=== PATIENT | male | born 2000 | race Caucasian/White ===

== ENCOUNTER → 2020-08-22 | Outpatient (CLI) | payer BC ==
[~2020-08-22] VITALS: Ht 190.5 cm; Wt 61.7 kg
[~2020-08-22] MED LIST: ALPR0.254 PO; SINCALIDE 1.2 MCG in IV NORMAL SALINE 50ML 30 ML IV ONE
--- NOTE | 2020-08-22 08:27 | RAD ---
EXAM: Abdomen sonogram. HISTORY: Nausea and vomiting. TECHNIQUE: Sonographic imaging of the abdomen was performed. COMPARISON: None. FINDINGS: The liver is normal in size. No focal hepatic lesion is seen. The common bile duct is josh l in caliber. There is a 2 mm nonmobile nodule along the gallbladder wall likely due to a polyp. Ther e is no cholelithiasis. There is no cholecystitis. The right kidney, pancreas and aorta cava are unre markable. IMPRESSION: 1. Suspected 2 mm gallbladder polyp. 2. No acute sonographic finding. Electronically signed by: Angeline Hernández MD (08/22/2020 8:25 AM) [id number]
--- NOTE | 2020-08-22 11:01 | RAD ---
EXAM: HEPATOBILIARY SCINTIGRAPHY WITH GALLBLADDER EJECTION FRACTION CALCULATION. HISTORY: Abdominal pain, nausea. TECHNIQUE: 5.5 mCi technetium-99m Choletec were administered intravenously and scintigraphic images o f the abdomen obtained. After filling of the gallbladder, 1.2 mcg of sincalide were infused and the g allbladder ejection fraction calculated. FINDINGS: There is prompt hepatic clearance of tracer from the blood pool. There is homogeneous distr ibution throughout the liver. There is normal filling of the gallbladder and clearance into the bilia ry tree and small bowel. The gallbladder ejection fraction is 35% (normal >35%). IMPRESSION: 1. Borderline decreased gallbladder ejection fraction. Electronically signed by: Juan Isaacs MD (08/22/2020 10:59 AM) [id number]
== END ==
LOC: US 08:21
PROVIDERS: ATTEND Internal Medicine Gastroenterology
DX: K21.9 Gastro-esophageal reflux disease without esophagitis (principal)
CPT/HCPCS: 76705; 78227; A9537; J2805

== ENCOUNTER → 2020-12-11 | Outpatient (CLI) | payer BC ==
[~2020-12-11] MED LIST changes: +ESOM40CA PO; +OXYC-325 PO; -SINCALIDE 1.2 MCG in IV NORMAL SALINE 50ML 30 ML IV ONE
== END ==
LOC: LAB 13:50
PROVIDERS: ATTEND Surgery
DX: Z01.812 Encounter for preprocedural laboratory examination (principal); K82.8 Other specified diseases of gallbladder; Z20.822 Contact with and (suspected) exposure to COVID-19
CPT/HCPCS: U0003; U0005

== ENCOUNTER 2020-12-13 05:59 | Day surgery (SDC) | payer BC ==
[2020-12-11 14:02] VITALS: BP 111/72
[~2020-12-13] VITALS: Ht 190.5 cm; Wt 61.2 kg
[~2020-12-13 05:59] MED LIST changes: -ESOM40CA PO; -OXYC-325 PO; +ceFAZolin SODIUM IV Push 1 GM VIAL. IVP PRN
[2020-12-13] MEDS ORDERED: fentaNYL PF VIAL 100 MCG/2 ML VIAL IVP PRN (06:00)
[2020-12-13] MEDS ORDERED: MORPHINE SULFATE 2 MG/ML INJ. IVP PRN (06:00)
[2020-12-13] MEDS ORDERED: PROCHLORPERAZINE 10 MG/2 ML VIAL. IVP PRN (06:00)
[2020-12-13] MEDS ORDERED: HYDROmorphone 2 MG/ML VIAL IVP PRN (06:00)
[2020-12-13] MEDS ORDERED: PROPOFOL 10 MG/ML (20ML) VIAL. IV ONE ×2 (06:20→08:40)
[2020-12-13] MEDS ORDERED: LIDOCAINE 2% PF 5 ML VIAL. ONE (06:20)
[2020-12-13] MEDS ORDERED: DEXAMETHASONE SOD PHOS 4 MG/ML VIAL ONE ×2 (06:21→07:58)
[2020-12-13] MEDS ORDERED: ONDANSETRON PF 4 MG/2 ML VIAL. ONE (06:21)
[2020-12-13] MEDS ORDERED: ROCURONIUM 50 MG/5 ML VIAL. ONE (06:21)
[2020-12-13] MEDS ORDERED: fentaNYL PF VIAL 100 MCG/2 ML VIAL ONE ×2 (06:21→09:05)
[2020-12-13] MEDS: IV RINGERS,LACTATED 1000ML 1,000 ML IV SCH ×2 (06:35→09:16)
[2020-12-13] MEDS ORDERED: ACETAMINOPHEN 500 MG TABLET PO ONE (07:00)
[2020-12-13] MEDS ORDERED: BUPIVACAINE-EPI 0.25%-1:200000 MPF 30 ML VIAL. ONE (07:10)
[2020-12-13] MEDS ORDERED: ONDANSETRON PF 4 MG/2 ML VIAL. IM ONE (07:15)
[2020-12-13] MEDS ORDERED: ONDANSETRON PF 4 MG/2 ML VIAL. IVP ONE (07:15)
[2020-12-13] MEDS ORDERED: MIDAZOLAM HCL/PF 2 MG/2 ML VIAL. ONE (07:19)
[2020-12-13] MEDS ORDERED: SUCCINYLCHOLINE 200 MG/10 ML VIAL. ONE (07:39)
--- NOTE | 2020-12-13 07:52 | PDOC1 ---
History and Physical Date of Admission Date of Admission DATE: 12/13/20 TIME: 07:48 Identification/Chief Complaint Chief Complaint Abdominal pain Source Source: Chart review, Patient History of Present Illness History of Present Illness 20-year-old male with 3-year history of abdominal pain he has had EGDs as well as ultrasound which showed a 2 mm gallbladder polyp with no stones HIDA scan showed ejection fraction of 35% with recurrence of his symptoms with injection of Kinevac Past Medical History Cardiovascular: No pertinent hx Pulmonary: No pertinent hx GI: GERD, Peptic Ulcer disease Heme/Onc: No pertinent hx Hepatobiliary: No pertinent hx Psych: No pertinent hx Rheumatologic: No pertinent hx Infectious disease: No pertinent hx ENT: No pertinent hx Renal/: No pertinent hx Endocrine: No pertinent hx Dermatology: No pertinent hx Past Surgical History Past Surgical History: No pertinent history Family History Family History: No Significant Social History Smoke: No ALCOHOL: rare Drugs: None Current Medications Current Medications Current Medications Fentanyl Citrate (Fentanyl 2ml Vial) 25 mcg PRN Q5MIN PRN IVP MILD PAIN 1-3; Start 12/13/20 at 06:00; Stop 12/13/20 at 20:00 Fentanyl Citrate (Fentanyl 2ml Vial) 50 mcg PRN Q5MIN PRN IVP MODERATE PAIN 4- 6; Start 12/13/20 at 06:00; Stop 12/13/20 at 20:00 Morphine Sulfate (Morphine Sulfate) 1 mg PRN Q10MIN PRN IVP SEVERE PAIN 7-10; Start 12/13/20 at 06:00; Stop 12/13/20 at 20:00 Ringer's Solution 1,000 ml @ 30 mls/hr Q24H IV Last administered on 12/13/20at 06:35; Start 12/13/20 at 06:00; Stop 12/13/20 at 17:59 Hydromorphone HCl (Dilaudid) 0.5 mg PRN Q10MIN PRN IVP SEVERE PAIN 7-10, 2nd CHOICE; Start 12/13/20 at 06:00; Stop 12/13/20 at 20:00 Prochlorperazine Edisylate (Compazine) 5 mg PACU PRN PRN IVP NAUSEA, MRX1; Start 12/13/20 at 06:00; Stop 12/13/20 at 20:00 Cefazolin Sodium (Ancef) 1 gm 1X PREOP PRN IVP PRIOR TO PROCEDURE; Start 12/12/20 at 18:30 Acetaminophen (Tylenol) 1,000 mg 1X ONCE PO Last administered on 12/13/20at 06:35; Start 12/13/20 at 07:00; Stop 12/13/20 at 07:01; Status DC Propofol (Diprivan) 200 mg STK-MED ONCE IV ; Start 12/13/20 at 06:20; Stop 12/13/20 at 06:20; Status DC Lidocaine HCl (Lidocaine Pf 2% Vial) 5 ml STK-MED ONCE .ROUTE ; Start 12/13/20 at 06:20; Stop 12/13/20 at 06:21; Status DC Dexamethasone Sodium Phosphate (Decadron) 4 mg STK-MED ONCE .ROUTE ; Start 12/13/20 at 06:21; Stop 12/13/20 at 06:21; Status DC Ondansetron HCl (Zofran) 4 mg STK-MED ONCE .ROUTE ; Start 12/13/20 at 06:21; Stop 12/13/20 at 06:21; Status DC Rocuronium [place] (Zemuron) 50 mg STK-MED ONCE .ROUTE ; Start 12/13/20 at 06:21; Stop 12/13/20 at 06:22; Status DC Fentanyl Citrate (Fentanyl 2ml Vial) 100 mcg STK-MED ONCE .ROUTE ; Start 12/13/20 at 06:21; Stop 12/13/20 at 06:22; Status DC Bupivacaine HCl/ Epinephrine Bitart (Sensorcaine-Epi 0.25%-1:019448 Mpf) 30 ml STK-MED ONCE .ROUTE ; Start 12/13/20 at 07:10; Stop 12/13/20 at 07:10; Status DC Ondansetron HCl (Zofran) 4 mg 1X ONCE IM ; Start 12/13/20 at 07:15; Stop 12/13/20 at 07:16; Status UNV Ondansetron HCl (Zofran) 4 mg 1X ONCE IVP Last administered on 12/13/20at 07:18; Start 12/13/20 at 07:15; Stop 12/13/20 at 07:32; Status DC Midazolam HCl (Versed) 2 mg STK-MED ONCE .ROUTE ; Start 8/13/21 at 07:19; Stop 12/13/20 at 07:20; Status DC Succinylcholine Chloride (Anectine) 200 mg STK-MED ONCE .ROUTE ; Start 12/13/20 at 07:39; Stop 12/13/20 at 07:39; Status DC Active Scripts Active Reported No Known Medications Prior To Admisstion (Info) Each 1 Each DAILY Allergies Allergies: Coded Allergies: No Known Drug Allergies (Unverified , 12/13/20) ROS Gastrointestinal: Yes Nausea, Yes Abdominal Pain Physical Exam General: Alert, Oriented X3, Cooperative, No acute distress HEENT: Atraumatic, EOMI Lungs: Clear to auscultation, Normal air movement Heart: RRR, no murmurs Abdomen: Normal bowel sounds, Soft, Other (Mildly tender to palpation epigastrium) Rectal Exam: not examined Extremities: No edema Skin: No significant lesion Neuro: Normal speech Psych/Mental Status: Mental status NL Vitals Vitals Vital Signs Date Time Temp Pulse Resp B/P (MAP) Pulse Ox O2 Delivery O2 Flow Rate FiO2 12/13/20 06:28 97.8 65 18 111/72 97 Room Air 97.8 VTE Prophylaxis Ordered VTE Prophylaxis Devices: Yes VTE Pharmacological Prophylaxi: Contraindicated Assessment/Plan Assessment/Plan Biliary dyskinesia with gallbladder polyp plan laparoscopic cholecystectomy Justifications for Admission Other Justification JOHANNY OBANDO MD Dec 13, 2020 07:51
[2020-12-13] MEDS ORDERED: diphenhydrAMINE 50 MG/ML VIAL ONE (08:19)
[2020-12-13] MEDS ORDERED: GLYCOPYRROLATE 1 MG/5 ML VIAL. ONE (08:21)
[2020-12-13] MEDS ORDERED: NEOSTIGMINE METHYLSULFATE 5 MG/5 ML SYRINGE. ONE (08:21)
[2020-12-13] MEDS ORDERED: KETOROLAC 30 MG/ML VIAL. ONE (08:22)
[2020-12-13] MEDS ORDERED: SEVOFLURANE 31 TO 60 MINUTES. IH ONE (08:28)
--- NOTE | 2020-12-13 08:32 | PDOC4 ---
Operative Note Operative Note Date: December 13, 2020 at 829 Preoperative diagnosis: Biliary dyskinesia and gallbladder polyp Postoperative diagnosis: Same Procedure: Laparoscopic cholecystectomy with fluorescein cholangiography Surgeon: Froy Specimen: Gallbladder Dictation: Patient is a 20-year-old male with right upper quadrant epigastric abdominal pain for approximately 3 years significant weight loss ultrasound showed gallbladder polyp and HIDA scan showed borderline ejection fraction with recurrent symptoms with Kinevac injection. Procedure of laparoscopic cholecystectomy was explained to the patient detail risk benefits were also discussed including bleeding infection injury to intra-abdominal contents possible necessitating further open operations alternatives to this procedure also discussed with the patient who seemed to understand and gave both verbal and written consent to have the procedure performed. Patient was taken to the operating room placed in the supine position general anesthesia was initiated once patient was sleeping intubated his abdomen was prepped and draped usual sterile fashion using ChloraPrep. Area just below the umbilicus was injected with quarter percent Marcaine with epinephrine incision was made 11 blade scalpel and a varies needle was placed within the abdomen creating pneumoperitoneum once this was complete the millimeter port was placed in a 5 mm camera was placed within the abdomen which was inspected no other abnormalities were noted. A 5 mm port was placed in the epigastrium a 5 mm port was placed in the right midabdomen and a 5 mm port was placed in the right lateral abdomen all under direct visualization. The dome of the gallbladder is grasped retracted cephalad the infundibulum of the gallbladder is grasped tract and laterally exposing the triangle fluorescein dye was visualized which showed patent cystic duct and common bile duct with normal anatomy. The adherent tissues the triangle were taken down with blunt dissection exposing the cystic duct and cystic artery both were doubly clipped and transected the gallbladder is taken off the liver with hook electrocautery placed in Endo Catch bag and removed the umbilicus right upper quadrant was irrigated and suctioned dry hemostasis deemed to be appropriate the pneumoperitoneum was reduced all ports were removed the fascial defect at the umbilicus was closed with a [id number] 0 Vicryl suture and the skin was reapproximated all port sites for subcuticular Monocryl Mastisol Steri-Strips and island dressings were applied. Patient was awakened and extubated in the operating room taken to recovery in stable condition all sponge instrument needle counts listed as correct estimated blood loss 5 mL JOHANNY OBANDO MD Dec 13, 2020 08:32
[2020-12-13] MEDS ORDERED: ESOM40CA PO (08:35)
[2020-12-13] MEDS ORDERED: OXYC-325 PO (08:35)
--- NOTE | 2020-12-13 08:36 | DISCH ---
DISCHARGE INSTRUCTIONS Condition on Discharge Condition on Discharge: Stable Activity After Discharge Activity Instructions for Disc: Avoid exertion Other activity instructions: No lifting more than 20 pounds for 2 weeks Diet after Discharge Diet after Discharge: Low Fat Wound Incision Care Other wound/incision instructi: May shower in 24 hours Contacting the after DC Call your doctor for: If your condition worsens Follow-Up Follow up with: Dr. Obando in 2 weeks JOHANNY OBANDO MD Dec 13, 2020 08:36
[2020-12-13] MEDS: fentaNYL PF VIAL 100 MCG/2 ML VIAL IVP PRN ×2 (09:09→09:16)
[2020-12-13 09:58] VITALS: BP 90/42
[2020-12-13] MEDS ORDERED: MORPHINE SULFATE 2 MG/ML INJ. ONE (10:04)
[2020-12-13] MEDS ORDERED: oxyCODONE/APAP 5/325 1 TAB TABLET ONE (10:04)
[2020-12-13] MEDS ORDERED: oxyCODONE/APAP 5/325 1 TAB TABLET PO ONE (10:30)
--- NOTE | 2020-12-17 15:08 | PATHOLOGY ---
[facility] Accession Number: [id number] . 01 Material submitted: . gallbladder - GALLBLADDER AND CONTENTS . 01 Clinical history: . BILIARY DYSKINESIA LAP JARRELL . 02 Diagnosis: Gallbladder, laparoscopic cholecystectomy: - Chronic cholecystitis, mild. - Small gallbladder neck lymph node showing no diagnostic abnormalities. (JPM:isamar; 12/17/2020) S 12/17/2020 0920 Local . 02 Comment: There are no calculi identified within the gallbladder lumen or specimen container. There is no evidence of malignancy. (JPM:isamar; 12/17/2020) . 02 Electronically signed: . Wilder Cordon MD, Pathologist NPI- [id number] . 01 Gross description: . Fixative: Formalin Labeled: Gallbladder and contents Specimen received: An intact gallbladder Dimensions: 5.7 x 3.2 x 2.8 cm Serosa: Solomon-drummond and smooth Lymph node: Not identified Mucosa: Solomon, bile-stained and velvety Average wall thickness: 0.1 cm Calculi: None identified Abnormalities: None identified A1- Industrial Relations Specialist body, fundus, and the cystic duct margin. (MRF; 12/13/2020) MFE/MFE 12/13/2020 1638 Local . 02 Pathologist provided ICD-10: K81.1 . 02 CPT . 543808 Specimen Comment: A courtesy copy of this report has been sent to [phone] Specimen Comment: Report sent to Performed at: 01 [facility] [address], [place] [id number] MD Rowdy Ruiz MD Phone: [phone] Performed at: 02 [facility] [address] [place], [place] [id number] MD Wilder Cordon MD Phone: [phone]
== END 2020-12-13 10:45 | disposition home or self-care (01) ==
LOC: SURG 05:59
PROVIDERS: ATTEND Surgery
DX: K82.4 Cholesterolosis of gallbladder (principal); K82.8 Other specified diseases of gallbladder; Z87.891 Personal history of nicotine dependence; Z79.899 Other long term (current) drug therapy; Z98.890 Other specified postprocedural states; Z72.89 Other problems related to lifestyle
CPT/HCPCS: 47563; 88304; A4364; A4930; A6219; J0330; J0690; J1100; J1200; J1885; J2250; J2270; J2405; J2704; J2710; J3010; J3490; A4657

== ENCOUNTER 2020-12-15 03:57 | Inpatient (IN) | payer BC ==
[~2020-12-15] VITALS: Ht 190.5 cm; Wt 61.3 kg
[~2020-12-15 03:57] MED LIST changes: +ESOM40CA PO; +OXYC-325 PO; -ceFAZolin SODIUM IV Push 1 GM VIAL. IVP PRN
[2020-12-15 04:59] LABS: BASO % 0 % (0-3); EOS % 1 % (0-3); HEMATOCRIT 34.3 % (39.0-53.0); HEMOGLOBIN 12.2 g/dL (13.0-17.5); LYMPH # 0.3 x10^3/uL (1.0-4.8); LYMPH % 4 % (24-48); MEAN CORPUSCULAR HEMOGLOBIN 31 pg (25-35); MEAN CORPUSCULAR HGB CONC 35 g/dL (31-37); MEAN CORPUSCULAR VOLUME 89 fL (79-100); MONO # 0.6 x10^3/uL (0.0-1.1); MONO % 8 % (0-9); NEUT # 6.6 x10^3/uL (1.8-7.7); NEUT % 87 % (31-73); PLATELET COUNT 217 x10^3/uL (140-400); RED BLOOD COUNT 3.87 x10^6/uL (4.30-5.70); RED CELL DISTRIBUTION WIDTH 12.6 % (11.5-14.5); WHITE BLOOD COUNT 7.6 x10^3/uL (4.0-11.0)
--- NOTE | 2020-12-15 05:05 | PHYS DOC ---
General Adult EDM: Chief Complaint: GI PROBLEM HPI: HPI: Patient is a 20 year old male presents for evaluation of abdominal pain. Patient had a laparoscopic cholecystectomy performed on Wednesday (Dr Mcduffie). Patient had an uncomplicated surgical procedure and was discharged later that day. Patient states since discharge she has had consistent abdominal pain that has progressively become worse. Patient's abdominal pain is diffuse. He also states she has associated right shoulder discomfort that has persisted after discharge. Patient was placed on pain medications which resulted in constipation. Patient states over the last few days he has been taking laxatives and just tonight prior to arrival patient had multiple bowel movements. Patient also states tonight started experience some nausea and vomiting. Patient describes his vomit as bile. (ROSA M AGUSTIN DO) Review of Systems: Review of Systems: Review of systems: Constitutional symptoms- No fever, no chills. Eyes- No Discharge, No Visual Loss Respiratory symptoms- No shortness of breath, No wheezing, No Dyspnea on Exertion Cardiovascular Systems; No chest pain, No Palpitations, No syncope Gastrointestinal symptoms: Positive abdominal pain, Positive nausea, Positive vomiting Positive constipation no diarrhea. Genitourinary symptoms: No dysuria. Musculoskeletal symptoms: No back pain No extremity pain. NEUROLOGICAL Symptoms: No headache, no generalized weakness; No focal Weakness Skin: No rash. (ROSA M AGUSTIN DO) Heart Score: C/O Chest Pain: N/A Risk Factors: Risk Factors: DM, Current or recent (<one month) smoker, HTN, HLP, family history of CAD, obesity. Risk Scores: Score 0 - 3: 2.5% MACE over next 6 weeks - Discharge Home Score 4 - 6: 20.3% MACE over next 6 weeks - Admit for Clinical Observation Score 7 - 10: 72.7% MACE over next 6 weeks - Early Invasive Strategies (ROSA M AGUSTIN DO) Current Medications: Current Medications Medications (Trade) Dose Ordered Sig/[place] Start Time Stop Time Status Last Admin Dose Admin Morphine Sulfate (Morphine Sulfate) 4 mg 1X ONCE 12/15/20 05:00 12/15/20 05:01 UNV Ondansetron HCl (Zofran) 4 mg 1X ONCE 12/15/20 05:00 12/15/20 05:01 UNV (ROSA M AGUSTIN DO) Allergies: Allergies: Allergies Coded Allergies Type Severity Reaction Last Updated Verified No Known Drug Allergies 12/13/20 No (ROSA M AGUSTIN DO) Physical Exam: PE: General: alert, no acute distress. Skin: warm, dry and intact, no erythema, no rash. HENT: bilateral external ears normal, oropharynx moist, nose normal. Head:: Normocephalic, atraumatic. Neck: Trachea midline. Eyes: EOMI, Normal conjunctiva, No drainage CARDIOVASCULAR: Regular rate and rhythm RESPIRATORY: No respiratory distress Back: Full range of motion. MUSCULOSKELETAL: Full range of motion of bilateral upper and lower extremities. GASTROINTESTINAL: Diffuse abdominal tenderness NEUROLOGICAL: Alert and noted to person, place and time. No neurological deficits observed Psychiatric: Cooperative. Normal judgment (ROSA M AGUSTIN DO) EKG: EKG: [] (ROSA M AGUSTIN DO) Radiology/Procedures: Radiology/Procedures: [] (ROSA M AGUSTIN DO) Course & Med Decision Making: Course & Med Decision Making Pertinent Labs and Imaging studies reviewed. (See chart for details) [] Patient was evaluated for chief complaint. Work-up consisted of laboratory analysis and radiologic imaging. Treatment included morphine and IV fluids Labs and radiologic imaging pending at shift change. (ROSA M AGUSTIN DO) Course & Med Decision Making I received this patient in signout from Dr. Agustin. CT resulted showing concerns for hemoperitoneum. There is retained pneumoperitoneum less likely normal postoperative change. Hemoglobin 12.2. No previous for comparison. His vital signs have stayed stable during his stay here. Discussed with Dr. Mcduffie, attending surgeon, who recommends admission with potential further work-up with HIDA scan serial H/H. Accepted by Dr. Fernandez, hospitalist. [id number] (ALEXYS TOURE MD) Dragon Disclaimer: Dragon Disclaimer: This electronic medical record was generated, in whole or in part, using a voice recognition dictation system. (ROSA M AGUSTIN DO) Departure Departure Impression: Primary Impression: Abdominal pain Referrals: ALPESH BUSTOS MD (PCP) ROSA M AGUSTIN DO Dec 15, 2020 05:05 ALEXYS TOURE MD Dec 15, 2020 07:00
[2020-12-15 05:28] LABS: CREATININE 1.1 mg/dL (0.7-1.3); GFR 85.3; POTASSIUM 3.3 mmol/L (3.5-5.1)
[2020-12-15] MEDS ORDERED: ONDANSETRON PF 4 MG/2 ML VIAL. IVP ONE (05:30)
[2020-12-15] MEDS ORDERED: MORPHINE SULFATE 4 MG/ML INJ. IVP ONE (05:30)
[2020-12-15 05:43] LABS: ALBUMIN 4.3 g/dL (3.4-5.0); ALBUMIN/GLOBULIN RATIO 1.5 (1.0-1.7); TOTAL BILIRUBIN 0.7 mg/dL (0.2-1.0); TOTAL PROTEIN 7.1 g/dL (6.4-8.2)
[2020-12-15] MEDS ORDERED: CONTRAST GIVEN. MC PRN (05:45)
[2020-12-15] MEDS ORDERED: IOHEXOL 300 MG/ML 100ML VIAL. IV ONE (06:00)
--- NOTE | 2020-12-15 06:43 | RAD ---
CT abdomen and pelvis with contrast PQRS statement: CT scans at this facility use dose reduction including either automated exposure cont rol, iterative reconstructions, and /or weight based radiation dosing via mA and kV modification when appropriate to reduce radiation dose to as low as reasonably achievable. Contrast: 75 mL Omnipaque 300 intravenous contrast HISTORY: Vomiting bile, fever, abdominal pain, nausea, weight loss. History of cholecystectomy one day ago. Abdomen findings: There is extensive pneumomediastinum surrounding the lower esophagus and soft tissu e emphysema about the diaphragms and abdominal wall and retroperitoneum, this all appears to be extra peritoneal rather than pneumoperitoneum although small volume of pneumoperitoneum be difficult to exc lude. Cholecystectomy. Pancreas, liver, spleen, adrenals and left kidney are unremarkable. The right kidney demonstrates a mildly delayed nephrogram, which could also be mildly striated, renal vessels a re unremarkable. No hydronephrosis evident. There may be a small volume of free fluid at [facility]'s po uch. The appendix is negative. There is fluid within the large bowel. No dilated small bowel loops. N o inflammatory changes of the bowel evident. Vessels demonstrate patent contrast enhancement of throm bosis or occlusion evident. No pneumatosis of the bowel evident. Pelvis findings: Bladder, prostate unremarkable. Fluid within the rectosigmoid without inflammatory c hange. There is mild/moderate dependent pelvic free fluid which has mild layering density dependently which could be hemorrhage. Bones are unremarkable. IMPRESSION: 1. Recent postoperative changes of laparoscopic cholecystectomy. There is mild hypodense fluid within the right paracolic gutter and pelvis without layering density within the pelvis, this could represe nt hemoperitoneum or a mixture of intraperitoneal bile bile leak and hemoperitoneum. No biliary ducta l dilation. 2. Extensive soft tissue emphysema at the lower chest, abdomen and pelvis as well as possible small v olume of pneumoperitoneum most likely representing residual air insufflated during laparoscopic surge ry. Given history of vomiting, the air surrounding the esophagus at the lower chest could also be obs erved with an esophageal tear however there is no edema or fluid surrounding the esophagus or pleural fluid to otherwise suggest esophageal injury, and is most likely related to the postoperative air el sewhere within the chest, abdomen and pelvis. 3. Unusual right renal nephrogram raising the possibility of pyelonephritis. No hydronephrosis. FOR INTERNAL CODING PURPOSES Critical result: Findings discussed with Dr. Agustin at 12/15/2020 6:32 AM. RESULT CODE: (C) Electronically signed by: Gabriel Dailey MD (12/15/2020 6:41 AM) [facility]
[2020-12-15 06:46] LABS: % BANDS 4 % (0-9); % BASOS 2 % (0-3); % EOS 4 % (0-5); % LYMPHS 9 % (24-48); % MONOS 2 % (0-10); % SEGS 79 % (35-66); PLT ESTIMATE ADEQUATE (ADEQUATE)
[2020-12-15] MEDS ORDERED: ONDANSETRON PF 4 MG/2 ML VIAL. IVP PRN (07:00)
[2020-12-15] MEDS: PANTOPRAZOLE IV PUSH 40 MG VIAL. IVP SCH (12:32)
[2020-12-15] MEDS: MORPHINE SULFATE 2 MG/ML INJ. IVP PRN ×3 (12:51→21:19)
[2020-12-15 13:30] VITALS: BP 106/61
--- NOTE | 2020-12-15 14:03 | HP ---
ADMIT DATE: 12/15/2020 CHIEF COMPLAINT: Abdominal pain, nausea, vomiting, recent cholecystectomy. HISTORY OF PRESENT ILLNESS: The patient is a pleasant 20-year-old healthy male who had a laparoscopic cholecystectomy on Wednesday of this week. He has been doing well at first, but then he has developed abdominal pain and nausea, vomiting. He has not had a bowel movement for several days. His mom brought him to the hospital. We did some imaging of his abdomen, which is showing postoperative changes of a laparoscopic cholecystectomy, but there is also some fluid collection in the right paracolic gutter and pelvis. We were concerned this could be a hemoperitoneum or a mixture of hemoperitoneum and bile leak. I discussed the case with the ER physician. We are going to admit the patient and consult GI and general surgery. It should also be noted that the CAT scan was also showing the possibility of pyelonephritis. PAST MEDICAL HISTORY: Recent cholecystectomy. ALLERGIES: None. FAMILY HISTORY: Diabetes. SOCIAL HISTORY: Does not drink, smoke or take drugs. MEDICATIONS: Reviewed, please refer to the MRAD. REVIEW OF SYSTEMS: GENERAL: No history of weight change, weakness or fevers. SKIN: No bruising, hair changes or rashes. EYES: No blurred, double or loss of vision. NOSE AND THROAT: No history of nosebleeds, hoarseness or sore throat. HEART: No history of palpitations, chest pain or shortness of breath on exertion. LUNGS: Denies cough, hemoptysis, wheezing or shortness of breath. GASTROINTESTINAL: He complains of nausea, vomiting, abdominal pain. GENITOURINARY: No history of frequency, urgency, hesitancy or nocturia. NEUROLOGIC: Denies history of numbness, tingling, tremor or weakness. PSYCHIATRIC: No history of panic, anxiety or depression. ENDOCRINE: No history of heat or cold intolerance, polyuria or polydipsia. EXTREMITIES: Denies muscle weakness, joint pain, pain on walking or stiffness. PHYSICAL EXAMINATION: VITALS: Within normal limits and are stable. GENERAL: No apparent distress. Alert and oriented. HEENT: Normal cephalic atraumatic, external auditory canals are patent EYES: Extraocular muscles are intact, pupils are equally round and reactive to light and accommodation MUSCULOSKELETAL: Well developed, well nourished, good range of motion ENDOCRINE: No thyromegaly was palpated LYMPHATICS: No cervical chain or axillary nodes were noted HEMATOPOIETIC: No bruising NECK: Supple, no JVD, no thyromegaly was noted. LUNGS: Clear to auscultation in all lung reyes without rhonchi or wheezing. HEART: RRR, S1, S2 present. Peripheral pulses intact, no obvious murmurs were noted. ABDOMEN: He has decreased bowel sounds and tenderness to palpation. EXTREMITIES: Without any cyanosis, clubbing, or edema. Pedal pulses intact, Homans sign is negative. NEUROLOGIC: He is extremely weak. PSYCHIATRIC: He appears depressed. SKIN: No ulcerations or rashes, good skin turgor, no jaundice. VASCULAR: Good capillary refill, neurovascular bundle appears to be intact. LABORATORY DATA: White count 7, hemoglobin 12, platelets 217. Electrolytes are normal other than potassium of 3.3. CT of the abdomen shows a hemoperitoneum and/or bile leak and incidental finding of possible pyelonephritis. ASSESSMENT AND PLAN: Postoperative changes of possible bile leak and/or hemoperitoneum and possible pyelonephritis with incidental finding of hypokalemia. The patient has been admitted. We will give him IV antibiotics, IV fluids, replace his potassium. consult his surgeon, consult GI. Trend labs. Home meds, deep venous thrombosis prophylaxis. Full code. ROBEL DR: BIJAL/basilia TID: [id number]
[2020-12-15 14:13] LABS: BASO % 0 % (0-3); EOS % 0 % (0-3); HEMATOCRIT 32.1 % (39.0-53.0); HEMOGLOBIN 11.2 g/dL (13.0-17.5); LYMPH # 0.6 x10^3/uL (1.0-4.8); LYMPH % 14 % (24-48); MEAN CORPUSCULAR HEMOGLOBIN 31 pg (25-35); MEAN CORPUSCULAR HGB CONC 35 g/dL (31-37); MEAN CORPUSCULAR VOLUME 89 fL (79-100); MONO # 0.5 x10^3/uL (0.0-1.1); MONO % 12 % (0-9); NEUT # 3.1 x10^3/uL (1.8-7.7); NEUT % 74 % (31-73); PLATELET COUNT 193 x10^3/uL (140-400); RED BLOOD COUNT 3.61 x10^6/uL (4.30-5.70); RED CELL DISTRIBUTION WIDTH 12.6 % (11.5-14.5); WHITE BLOOD COUNT 4.2 x10^3/uL (4.0-11.0)
[2020-12-15] MEDS: cefTRIAXone IV Push 1 GM VIAL. IVP SCH (15:11)
[2020-12-15] MEDS: AA 4.25 %/CALCIUM/LYTES/D5W 1,000 ML IV SCH (15:11)
[2020-12-15 16:48] VITALS: BP 115/62
[2020-12-15] MEDS: ACETAMINOPHEN 325 MG TABLET. PO PRN (17:01)
[2020-12-15 19:01] VITALS: BP 103/42
[2020-12-15 19:45] VITALS: BP 105/57
[2020-12-15 23:39] VITALS: BP 119/46
[2020-12-16] VITALS (7 sets, daily range): BP systolic 95–119; BP diastolic 49–71
[2020-12-16] MEDS: AA 4.25 %/CALCIUM/LYTES/D5W 1,000 ML IV SCH ×2 (02:15→14:50)
[2020-12-16] MEDS: PANTOPRAZOLE IV PUSH 40 MG VIAL. IVP SCH (08:59)
--- NOTE | 2020-12-16 09:35 | PDOC2 ---
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 Ongoing pain to RUQ, right shoulder. Catron it worsen ed over the weekend. Episode of bilious vomiting. chills. Had stools prior to er evaluation Past Medical History Cardiovascular: No pertinent hx Pulmonary: No pertinent hx GI: GERD, Peptic Ulcer disease Heme/Onc: No pertinent hx Hepatobiliary: No pertinent hx Psych: No pertinent hx Rheumatologic: No pertinent hx Infectious disease: No pertinent hx Renal/: No pertinent hx Endocrine: No pertinent hx Past Surgical History Past Surgical History: Cholecystectomy Family History Family History: No Significant Social History ALCOHOL: rare Drugs: None Lives: Alone Current Problem List Problem List Problems Medical Problems: (1) Abdominal pain Status: Acute Current Medications Current Medications Current Medications Ondansetron HCl (Zofran) 4 mg 1X ONCE IVP Last administered on 12/15/20at 05:37; Start 12/15/20 at 05:30; Stop 12/15/20 at 05:31; Status DC Morphine Sulfate (Morphine Sulfate) 4 mg 1X ONCE IVP Last administered on 12/15/20at 05:37; Start 12/15/20 at 05:30; Stop 12/15/20 at 05:31; Status DC Iohexol (Omnipaque 300 Mg/ml) 75 ml 1X ONCE IV Last administered on 12/15/20at 06:09; Start 12/15/20 at 06:00; Stop 12/15/20 at 06:01; Status DC Info (CONTRAST GIVEN -- Rx MONITORING) 1 each PRN DAILY PRN MC SEE COMMENTS; Start 12/15/20 at 05:45; Stop 12/17/20 at 05:44 Ondansetron HCl (Zofran) 4 mg PRN Q6HRS PRN IVP NAUSEA/VOMITING 1ST CHOICE; Start 12/15/20 at 07:00; Stop 12/16/20 at 06:59; Status DC Morphine Sulfate (Morphine Sulfate) 2 mg PRN Q4HRS PRN IVP SEVERE PAIN 7-10 Last administered on 12/15/20at 21:19; Start 12/15/20 at 07:00; Stop 12/16/20 at 06:59; Status DC Pantoprazole Sodium (PROTONIX VIAL for IV PUSH) 40 mg DAILYAC IVP Last administered on 12/16/20at 08:59; Start 12/15/20 at 10:00 Ceftriaxone Sodium (Rocephin) 1 gm Q24H IVP Last administered on 12/15/20at 15:11; Start 12/15/20 at 15:00 Amino Acids/ Electrolytes/ Dextrose 1,000 ml @ 80 mls/hr [id number] IV Last administered on 12/16/20at 02:15; Start 12/15/20 at 13:45 Acetaminophen (Tylenol) 650 mg PRN Q4HRS PRN PO MILD PAIN / TEMP > 100.3'F Last administered on 12/15/20at 17:01; Start 12/15/20 at 17:00 Active Scripts Active Nexium Capsule (Esomeprazole Magnesium) 40 Mg Capsule.dr 40 Mg PO DAILYAC 30 Days Percocet 5-325 mg Tablet (Oxycodone HCl/Acetaminophen) 1 Each Tablet 1 Tab PO Q6HRS PRN MDD 4 Tablet(s) 5 Days Reported No Known Medications Prior To Admisstion (Info) Each 1 Each MC DAILY Allergies Allergies: Coded Allergies: No Known Drug Allergies (Unverified , 12/13/20) ROS General: YES: Chills, Other (low grade fevers ) PSYCHOLOGICAL ROS: No: Anxiety, Depression Eyes: No Blurry vision, No Double vision HEENT: No: Heacaches, Sore Throat Hematological and Lymphatic: No: Bleeding Problems, Blood Clots Respiratory: YES: Shortness of breath (when taking IV pain medication ); No: Cough Cardiovascular: No Chest Pain, No Palpitations Gastrointestinal: Yes Other (see hpi) Genitourinary: No Dysuria, No Retention Musculoskeletal: No Joint Pain, No Muscle Pain Neurological: No Impaired Coord/balance, No Numbness/Tingling Skin: No Pruritus, No Rash Physical Exam General: Alert, Oriented X3, Cooperative HEENT: Atraumatic, PERRLA Lungs: Clear to auscultation, Normal air movement Heart: Regular rate, Normal S1, Normal S2 Abdomen: Soft, Other (lap sites intact, no signs of infection, TTP RUQ) Extremities: No clubbing, No cyanosis Skin: No rashes, No breakdown Neuro: Normal gait, Normal speech Psych/Mental Status: Mental status NL, Mood NL MUSCULOSKELETAL: No deformity, No swelling Vitals VITALS Vital Signs Date Time Temp Pulse Resp B/P (MAP) Pulse Ox O2 Delivery O2 Flow Rate FiO2 12/16/20 03:52 100.0 83 18 119/63 (81) 98 Nasal Cannula 2.0 100.0 Labs Labs Laboratory Tests Test 12/15/20 04:39 12/15/20 13:20 White Blood Count 7.6 x10^3/uL (4.0-11.0) 4.2 x10^3/uL (4.0-11.0) Red Blood Count 3.87 x10^6/uL (4.30-5.70) 3.61 x10^6/uL (4.30-5.70) Hemoglobin 12.2 g/dL (13.0-17.5) 11.2 g/dL (13.0-17.5) Hematocrit 34.3 % (39.0-53.0) 32.1 % (39.0-53.0) Mean Corpuscular Volume 89 fL (79-100) 89 fL (79-100) Mean Corpuscular Hemoglobin 31 pg (25-35) 31 pg (25-35) Mean Corpuscular Hemoglobin Concent 35 g/dL (31-37) 35 g/dL (31-37) Red Cell Distribution Width 12.6 % (11.5-14.5) 12.6 % (11.5-14.5) Platelet Count 217 x10^3/uL (140-400) 193 x10^3/uL (140-400) Neutrophils (%) (Auto) 87 % (31-73) 74 % (31-73) Lymphocytes (%) (Auto) 4 % (24-48) 14 % (24-48) Monocytes (%) (Auto) 8 % (0-9) 12 % (0-9) Eosinophils (%) (Auto) 1 % (0-3) 0 % (0-3) Basophils (%) (Auto) 0 % (0-3) 0 % (0-3) Neutrophils # (Auto) 6.6 x10^3/uL (1.8-7.7) 3.1 x10^3/uL (1.8-7.7) Lymphocytes # (Auto) 0.3 x10^3/uL (1.0-4.8) 0.6 x10^3/uL (1.0-4.8) Monocytes # (Auto) 0.6 x10^3/uL (0.0-1.1) 0.5 x10^3/uL (0.0-1.1) Eosinophils # (Auto) 0.0 x10^3/uL (0.0-0.7) 0.0 x10^3/uL (0.0-0.7) Basophils # (Auto) 0.0 x10^3/uL (0.0-0.2) 0.0 x10^3/uL (0.0-0.2) Segmented Neutrophils % 79 % (35-66) Band Neutrophils % 4 % (0-9) Lymphocytes % 9 % (24-48) Monocytes % 2 % (0-10) Eosinophils % 4 % (0-5) Basophils % 2 % (0-3) Platelet Estimate Adequate (ADEQUATE) Sodium Level 137 mmol/L (136-145) Potassium Level 3.3 mmol/L (3.5-5.1) Chloride Level 102 mmol/L (98-107) Carbon Dioxide Level 29 mmol/L (21-32) Anion Gap 6 (6-14) Blood Urea Nitrogen 15 mg/dL (8-26) Creatinine 1.1 mg/dL (0.7-1.3) Estimated GFR (Cockcroft-Gault) 85.3 BUN/Creatinine Ratio 14 (6-20) Glucose Level 103 mg/dL (70-99) Lactic Acid Level 1.3 mmol/L (0.4-2.0) Calcium Level 9.0 mg/dL (8.5-10.1) Total Bilirubin 0.7 mg/dL (0.2-1.0) Aspartate Amino Transf (AST/SGOT) 196 U/L (15-37) Alanine Aminotransferase (ALT/SGPT) 150 U/L (16-63) Alkaline Phosphatase 90 U/L (46-116) Total Protein 7.1 g/dL (6.4-8.2) Albumin 4.3 g/dL (3.4-5.0) Albumin/Globulin Ratio 1.5 (1.0-1.7) Laboratory Tests Test 12/15/20 13:20 White Blood Count 4.2 x10^3/uL (4.0-11.0) Red Blood Count 3.61 x10^6/uL (4.30-5.70) Hemoglobin 11.2 g/dL (13.0-17.5) Hematocrit 32.1 % (39.0-53.0) Mean Corpuscular Volume 89 fL (79-100) Mean Corpuscular Hemoglobin 31 pg (25-35) Mean Corpuscular Hemoglobin Concent 35 g/dL (31-37) Red Cell Distribution Width 12.6 % (11.5-14.5) Platelet Count 193 x10^3/uL (140-400) Neutrophils (%) (Auto) 74 % (31-73) Lymphocytes (%) (Auto) 14 % (24-48) Monocytes (%) (Auto) 12 % (0-9) Eosinophils (%) (Auto) 0 % (0-3) Basophils (%) (Auto) 0 % (0-3) Neutrophils # (Auto) 3.1 x10^3/uL (1.8-7.7) Lymphocytes # (Auto) 0.6 x10^3/uL (1.0-4.8) Monocytes # (Auto) 0.5 x10^3/uL (0.0-1.1) Eosinophils # (Auto) 0.0 x10^3/uL (0.0-0.7) Basophils # (Auto) 0.0 x10^3/uL (0.0-0.2) Assessment/Plan Assessment/Plan s/p sera HIDA today, lab pending JOHANNY OBANDO MD 12/16/20 1125: CONSULT Assessment/Plan Assessment/Plan Patient seen and examined by me. Complaining of abdominal pain and reflux with epigastric burning. CT scan did show some mild pelvic fluid. Will obtain HIDA scan for evaluation biliary tree. Agree with Islas assessment plan LYNSEY TANG APRN Dec 16, 2020 09:35 JOHANNY OBANDO MD Dec 16, 2020 11:25
--- NOTE | 2020-12-16 09:38 | PDOC2 ---
GI CONSULT Date of Service: DATE: 12/16/20 TIME: 09:37 Reason For Consult: possible bile leak, transaminase-itis, n/v HPI: HPI: 20 y/o male admitted through ER. Past GI eval w/ Dr. Khanna - office visit in 07/2020 for n/v, bloating, chest pain, weight loss, and intermittent dysphagia. EGD on 07/31/20 showed reflux (path c/w reflux as well), normal stomach, scalloped mucosa in duodenum (path unremarkable). HIDA for ongoing n/v and reflux on 08/22/20 showed GB EF 35%. S/p cholecystectomy by Dr. Mcduffie for biliary dyskinesia and GB polyp on . Says his pain began "10 minutes after I woke up from surgery," worsened throughout the weekend (worst at RUQ sutures, also felt in back), was associated w/ constipation attributed to oxycodone use, and also associated with "trashcans full" of bilious emesis. Takes Alk-Diamondzter "when I have to" for reflux "all day everyday." He said he tried omeprazole for about a week after EGD and it didn't help. Recently tried to fill Rx for Nexium, too expensive. Denies dysphagia and hematemesis. N/v is a chronic issue for more than 1 year. Says didn't really have abdominal pain before cholecystectomy. Denies chronic diarrhea or constipation - typical bowel pattern is 1 "dry" stool daily. Post-op constipation resolved w/ laxatives - no difference in abd pain. Passing flatus but "not much" and "nothing for an hour." No hematochezia or melena. Has lost 110 pounds in a couple years - gives h/o binging and purging, then "all my friends started doing coke and Adderall to lose weight but I don't do that" so "I just stopped eating" (but also seems some history of avoiding eating due to n/v... also mentions "can't eat"...). Daily THC "so I can eat." No NSAIDs. Said Tylenol given pre-op caused worsening reflux and he about cussed everyone out. No past colonoscopy. No pancreas or PUD history. 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 Mentions he always works long hours and is stressed. Wondering about eating. PMH: PMH: GERD, anxiety, binging/purging cholecystectomy FH: Family History: No pertinent hx (denies GI cancers) Social History: Smoke: <1 pack per day (vapes) ALCOHOL: rare Drugs: Marijuana (daily) ROS: GEN: Denies fevers, chills, sweats HEENT: Denies blurred vision, sore throat CV: Denies chest pain RESP: Denies shortness of air, cough GI: Per HPI : Denies hematuria, dysuria ENDO: +weight loss NEURO: Denies confusion, dizziness MSK: Denies weakness, joint pain/swelling SKIN: Denies jaundice, pruritus Vitals: Vitals: Vital Signs Date Time Temp Pulse Resp B/P (MAP) Pulse Ox O2 Delivery O2 Flow Rate FiO2 12/16/20 03:52 100.0 83 18 119/63 (81) 98 Nasal Cannula 2.0 100.0 Labs: Labs: Laboratory Tests Test 12/15/20 13:20 White Blood Count 4.2 x10^3/uL (4.0-11.0) Red Blood Count 3.61 x10^6/uL (4.30-5.70) Hemoglobin 11.2 g/dL (13.0-17.5) Hematocrit 32.1 % (39.0-53.0) Mean Corpuscular Volume 89 fL (79-100) Mean Corpuscular Hemoglobin 31 pg (25-35) Mean Corpuscular Hemoglobin Concent 35 g/dL (31-37) Red Cell Distribution Width 12.6 % (11.5-14.5) Platelet Count 193 x10^3/uL (140-400) Neutrophils (%) (Auto) 74 % (31-73) Lymphocytes (%) (Auto) 14 % (24-48) Monocytes (%) (Auto) 12 % (0-9) Eosinophils (%) (Auto) 0 % (0-3) Basophils (%) (Auto) 0 % (0-3) Neutrophils # (Auto) 3.1 x10^3/uL (1.8-7.7) Lymphocytes # (Auto) 0.6 x10^3/uL (1.0-4.8) Monocytes # (Auto) 0.5 x10^3/uL (0.0-1.1) Eosinophils # (Auto) 0.0 x10^3/uL (0.0-0.7) Basophils # (Auto) 0.0 x10^3/uL (0.0-0.2) Allergies: Coded Allergies: No Known Drug Allergies (Unverified , 12/13/20) Medications: Current Medications Medications (Trade) Dose Ordered Sig/Cachorro Route PRN Reason Start Time Stop Time Status Last Admin Dose Admin Pantoprazole Sodium (PROTONIX VIAL for IV PUSH) 40 mg DAILYAC IVP 12/15/20 10:00 12/16/20 08:59 Ceftriaxone Sodium (Rocephin) 1 gm Q24H IVP 12/15/20 15:00 12/15/20 15:11 Amino Acids/ Electrolytes/ Dextrose 1,000 ml @ 80 mls/hr [id number] IV 12/15/20 13:45 12/16/20 02:15 Acetaminophen (Tylenol) 650 mg PRN Q4HRS PRN PO MILD PAIN / TEMP > 100.3'F 12/15/20 17:00 12/15/20 17:01 Imaging: Imaging: CT A/P IMPRESSION: 1. Recent postoperative changes of laparoscopic cholecystectomy. There is mild hypodense fluid within the right paracolic gutter and pelvis without layering density within the pelvis, this could represent hemoperitoneum or a mixture of intraperitoneal bile bile leak and hemoperitoneum. No biliary ductal dilation. 2. Extensive soft tissue emphysema at the lower chest, abdomen and pelvis as well as possible small volume of pneumoperitoneum most likely representing residual air insufflated during laparoscopic surgery. Given history of vomiting, the air surrounding the esophagus at the lower chest could also be observed with an esophageal tear however there is no edema or fluid surrounding the esophagus or pleural fluid to otherwise suggest esophageal injury, and is most likely related to the postoperative air elsewhere within the chest, abdomen and pelvis. 3. Unusual right renal nephrogram raising the possibility of pyelonephritis. No hydronephrosis. PE: GEN: uncomfortable HEENT: Atraumatic, PERRL LUNGS: tachypneic? HEART: RRR ABD: quiet, soft, wincing/moaning, moving around w/ light touch - seems worst in RUQ/epigastrium but uncomfortable diffusely EXTREMITY: No edema SKIN: No rashes, no jaundice NEURO/PSYCH: A & O 3 A/P: A/P: Abd pain and vomiting s/p cholecystectomy Normocytic anemia, elevated AST and ALT Abnormal CT - cholecystectomy changes, mild hypodense fluid within the right paracolic gutter/pelvis (ddx: hemoperitoneum vs mixture of intraperitoneal bile leak and hemoperitoneum), extensive soft tissue emphysema at the lower chest, abdomen and pelvis as well as possible small volume of pneumoperitoneum most likely representing residual air insufflated during laparoscopic surgery (the air surrounding the esophagus at the lower chest could also be observed with an esophageal tear however there is no edema or fluid surrounding the esophagus or pleural fluid to otherwise suggest esophageal injury), possibility of right pyelonephritis GERD ?post-op constipation - resolved Weight loss - seems combination of intentional and unintentional - see HPI CRC screen - average risk Daily THC use COVID negative 12/11/20 -- Seems has chronic n/v, untreated reflux, and now ?new? abdominal pain post-op. Surgery following. Await HIDA. Follow labs (recheck pending). We did discuss possible need for ERCP/stent. Keep NPO - explained to pt/family. Agree w/ PPI. HIDA 12/16: IMPRESSION: Focal radiotracer uptake in the right upper quadrant is suspicious for bile leak. D/w [place]/surgery and Dr. Khanna - we will tentatively plan for ERCP this evening. Needs another COVID swab per GI lab if not vaccinated - orders in. D/w nurse - says the patient had some soda. This is despite NPO orders. JOSE ELIAS JAMA Dec 16, 2020 09:38
--- NOTE | 2020-12-16 10:13 | NUR ---
SW following. Discussed with RN, pt from home, NPO. GI and Surgery following. HIDA scan today. Pt had a lap sera on 12/13/20. RN advised no SW needs at this time. SW will continue to follow.
[2020-12-16 12:13] LABS: BASO % 1 % (0-3); EOS % 1 % (0-3); HEMATOCRIT 34.8 % (39.0-53.0); HEMOGLOBIN 12.2 g/dL (13.0-17.5); LYMPH # 0.7 x10^3/uL (1.0-4.8); LYMPH % 12 % (24-48); MEAN CORPUSCULAR HEMOGLOBIN 31 pg (25-35); MEAN CORPUSCULAR HGB CONC 35 g/dL (31-37); MEAN CORPUSCULAR VOLUME 89 fL (79-100); MONO # 0.5 x10^3/uL (0.0-1.1); MONO % 7 % (0-9); NEUT % 80 % (31-73); PLATELET COUNT 190 x10^3/uL (140-400); RED BLOOD COUNT 3.91 x10^6/uL (4.30-5.70); RED CELL DISTRIBUTION WIDTH 12.6 % (11.5-14.5); WHITE BLOOD COUNT 6.3 x10^3/uL (4.0-11.0)
--- NOTE | 2020-12-16 12:19 | PDOC ---
[employer] PROGRESS NOTE Date of Service DOS: DATE: 12/16/20 TIME: 12:17 Chief Complaint Chief Complaint Postoperative changes of possible bile leak and/or hemoperitoneum and possible pyelonephritis with incidental finding of hypokalemia. The patient has been admitted. We will give him IV antibiotics, IV fluids, replace his potassium. consult his surgeon, consult GI. Trend labs. Home meds, deep venous thrombosis prophylaxis. Full code. History of Present Illness History of Present Illness The patient is a pleasant 20-year-old healthy male who had a laparoscopic cholecystectomy on Wednesday of this week. He has been doing well at first, but then he has developed abdominal pain and nausea, vomiting. He has not had a bowel movement for several days. His mom brought him to the hospital. We did some imaging of his abdomen, which is showing postoperative changes of a laparoscopic cholecystectomy, but there is also some fluid collection in the right paracolic gutter and pelvis. We were concerned this could be a hemoperitoneum or a mixture of hemoperitoneum and bile leak. I discussed the case with the ER physician. We are going to admit the patient and consult GI and general surgery. It should also be noted that the CAT scan was also showing the possibility of pyelonephritis. 12/16/2020: Afebrile, no acute events overnight. Still with complaint of pain. He is having HIDA scan today. Vitals/I&O Vitals/I&O: Vital Signs Date Time Temp Pulse Resp B/P (MAP) Pulse Ox O2 Delivery O2 Flow Rate FiO2 12/16/20 11:13 Room Air 2.0 12/16/20 07:00 100.0 71 95/71 (79) 100.0 12/16/20 03:52 18 98 I & O 12/15/20 12/15/20 12/16/20 15:00 23:00 07:00 Intake Total 120 ml Balance 120 ml Physical Exam General: Alert, Oriented X3, Cooperative, mild distress Heart: Regular rate, Normal S1, Normal S2 Lungs: Clear Abdomen: Soft, Other (lap sites intact, no signs of infection, TTP RUQ) Extremities: No clubbing, No cyanosis Skin: No rashes, No breakdown Labs Labs: Laboratory Tests Test 12/15/20 13:20 White Blood Count 4.2 x10^3/uL (4.0-11.0) Red Blood Count 3.61 x10^6/uL (4.30-5.70) Hemoglobin 11.2 g/dL (13.0-17.5) Hematocrit 32.1 % (39.0-53.0) Mean Corpuscular Volume 89 fL (79-100) Mean Corpuscular Hemoglobin 31 pg (25-35) Mean Corpuscular Hemoglobin Concent 35 g/dL (31-37) Red Cell Distribution Width 12.6 % (11.5-14.5) Platelet Count 193 x10^3/uL (140-400) Neutrophils (%) (Auto) 74 % (31-73) Lymphocytes (%) (Auto) 14 % (24-48) Monocytes (%) (Auto) 12 % (0-9) Eosinophils (%) (Auto) 0 % (0-3) Basophils (%) (Auto) 0 % (0-3) Neutrophils # (Auto) 3.1 x10^3/uL (1.8-7.7) Lymphocytes # (Auto) 0.6 x10^3/uL (1.0-4.8) Monocytes # (Auto) 0.5 x10^3/uL (0.0-1.1) Eosinophils # (Auto) 0.0 x10^3/uL (0.0-0.7) Basophils # (Auto) 0.0 x10^3/uL (0.0-0.2) Assessment and Plan Assessmemt and Plan Problems Medical Problems: (1) Abdominal pain Status: Acute Comment Review of Relevant I have reviewed the following items rosalia (where applicable) has been applied. Medications: Current Medications Medications (Trade) Dose Ordered Sig/Cachorro Route PRN Reason Start Time Stop Time Status Last Admin Dose Admin Ceftriaxone Sodium (Rocephin) 1 gm Q24H IVP 12/15/20 15:00 12/15/20 15:11 Amino Acids/ Electrolytes/ Dextrose 1,000 ml @ 80 mls/hr [id number] IV 12/15/20 13:45 12/16/20 02:15 Acetaminophen (Tylenol) 650 mg PRN Q4HRS PRN PO MILD PAIN / TEMP > 100.3'F 12/15/20 17:00 12/15/20 17:01 Justifications for Admission Other Justification RADHA VARGHESE MD Dec 16, 2020 12:19
[2020-12-16] MEDS: ACETAMINOPHEN 325 MG TABLET. PO PRN (12:25)
[2020-12-16 12:34] LABS: ALBUMIN 4.1 g/dL (3.4-5.0); ALBUMIN/GLOBULIN RATIO 1.3 (1.0-1.7); CALCIUM 8.9 mg/dL (8.5-10.1); CREATININE 0.9 mg/dL (0.7-1.3); GFR 107.6; POTASSIUM 3.8 mmol/L (3.5-5.1); TOTAL BILIRUBIN 0.3 mg/dL (0.2-1.0); TOTAL PROTEIN 7.3 g/dL (6.4-8.2)
--- NOTE | 2020-12-16 13:01 | RAD ---
CLINICAL HISTORY: Reason: Evaluation biliary tree for leak status post cholecystectomy/[facility] / S pl. Instructions: / History: COMPARISON: None available. TECHNIQUE: Radiopharmaceutical Dose: 5 mCi Tc99m Choletec intravenous. Planar images of the abdomen were obtaine d FINDINGS: There is prompt radiotracer uptake within the liver. Focal radiotracer accumulation is seen in the ri ght upper quadrant which progressively increases. Small bowel activity is also seen promptly. IMPRESSION: Focal radiotracer uptake in the right upper quadrant is suspicious for bile leak. Findings discussed with patient's nurse Krystal at 12/16/2020 12:55 PM. FOR INTERNAL CODING PURPOSES RESULT CODE: (C) Radiation Dosimetry: The radiopharmaceutical used for this exam delivers approximately 0.9 mSv/mCi (90 mRem/mCi) Source: RADIATION DOSE ESTIMATES TO ADULTS AND CHILDREN, [place]; Effective dose RADAR Electronically signed by: Jas De La Fuente MD (12/16/2020 12:59 PM) [id number]
[2020-12-16] MEDS: cefTRIAXone IV Push 1 GM VIAL. IVP SCH (14:23)
[2020-12-16] MEDS ORDERED: IV RINGERS,LACTATED 1000ML 1,000 ML IV SCH (15:45)
[2020-12-16] MEDS ORDERED: IOHEXOL 300 MG/ML 100ML VIAL. ONE (15:54)
[2020-12-16] MEDS ORDERED: NEOSTIGMINE METHYLSULFATE 5 MG/5 ML SYRINGE. ONE (16:00)
[2020-12-16] MEDS ORDERED: ROCURONIUM 50 MG/5 ML VIAL. ONE (16:00)
[2020-12-16] MEDS ORDERED: GLYCOPYRROLATE 1 MG/5 ML VIAL. ONE (16:13)
[2020-12-16] MEDS ORDERED: LIDOCAINE 2% PF 5 ML VIAL. ONE (16:13)
[2020-12-16] MEDS ORDERED: PROPOFOL 10 MG/ML (20ML) VIAL. IV ONE (16:13)
[2020-12-16] MEDS ORDERED: PHENYLEPHRINE in 0.9% NACL PF 1 MG/10 ML SYRINGE. IV ONE (16:13)
[2020-12-16] MEDS ORDERED: ONDANSETRON PF 4 MG/2 ML VIAL. ONE ×2 (16:13→18:20)
[2020-12-16] MEDS ORDERED: MIDAZOLAM HCL/PF 2 MG/2 ML VIAL. ONE (16:13)
[2020-12-16] MEDS ORDERED: fentaNYL PF VIAL 100 MCG/2 ML VIAL ONE (16:13)
--- NOTE | 2020-12-16 18:03 | PDOC4 ---
Operative Note Operative Note ERCP with stent placement Meds propofol per anesthesia Preop dx abd pain s/p sera with possible bile leak Postop dx intact CBD with duct of Luschka leak s/p 7 Fr 7 cm stent placement Plan am labs advance diet if no complications from ERCP ZACARIAS QUINN MD Dec 16, 2020 18:03
[2020-12-16] MEDS ORDERED: ONDANSETRON PF 4 MG/2 ML VIAL. IVP ONE (18:45)
--- NOTE | 2020-12-16 20:00 | NUR ---
Patient reports abdominal pain, does not want narcotic, does not want tylenol, reports his abdomen feels 'bloated, I've never had this much pain...' This tech writer looks at his abdomen (pt parag), four sites of lap sera, with steri strips c/d/i, bleeding not noted at these sites, patient's abdomen flat, distention is not noted, vital signs were wnl, patient is informed that he will have to walk, to get rid of air/bloat, was able to get patient up to toilet, guarded, frequently winces, is assisted back to bed, quite a bit of belching, did not pass gas/flatulence.
[2020-12-16] MEDS ORDERED: oxyCODONE IR 5 MG TABLET PO PRN (21:15)
--- NOTE | 2020-12-16 23:00 | NUR ---
Patient dozes, but awakens with pain, he is assisted to hallway, ambulated with this underwriter solicitation director, frequent belching, as he completed walking around the square, he is concerned that he did not pass gas, He is assisted, again, around the hale, back to bed, he requests an enema (a few times to staff) to relieve the bloated abdomen, this is discouraged per this underwriter solicitation director, suggesting that he lay on left side, bring both knees up to help relieve the discomfort.
--- NOTE | 2020-12-17 00:07 | RAD ---
ERCP intraoperative fluoroscopic x-rays Fluoroscopy time 69 seconds, 4 x-ray images HISTORY: Bile leak, stent placement. FINDINGS: Images demonstrate the endoscope and catheterization and contrast injection first of the pa ncreatic duct followed by contrast injection of the bile ducts with sweeping of the bile ducts with a catheter followed by placement of a biliary stent. IMPRESSION: See above. Electronically signed by: Gabriel Dailey MD (12/17/2020 12:05 AM) [facility]
[2020-12-17] MEDS: ONDANSETRON PF 4 MG/2 ML VIAL. IVP PRN ×5 (01:10→22:06)
[2020-12-17] MEDS: MORPHINE SULFATE 2 MG/ML INJ. IVP PRN ×6 (01:10→22:06)
[2020-12-17 03:00] VITALS: BP 122/72
[2020-12-17] MEDS: AA 4.25 %/CALCIUM/LYTES/D5W 1,000 ML IV SCH ×2 (06:11→20:02)
[2020-12-17 07:00] VITALS: BP 115/40
[2020-12-17 07:32] LABS: BASO % 0 % (0-3); EOS % 0 % (0-3); HEMATOCRIT 34.8 % (39.0-53.0); HEMOGLOBIN 12.2 g/dL (13.0-17.5); LYMPH # 0.9 x10^3/uL (1.0-4.8); LYMPH % 12 % (24-48); MEAN CORPUSCULAR HEMOGLOBIN 31 pg (25-35); MEAN CORPUSCULAR HGB CONC 35 g/dL (31-37); MEAN CORPUSCULAR VOLUME 89 fL (79-100); MONO # 0.5 x10^3/uL (0.0-1.1); MONO % 7 % (0-9); NEUT # 5.8 x10^3/uL (1.8-7.7); NEUT % 80 % (31-73); PLATELET COUNT 177 x10^3/uL (140-400); RED CELL DISTRIBUTION WIDTH 12.6 % (11.5-14.5); WHITE BLOOD COUNT 7.2 x10^3/uL (4.0-11.0)
[2020-12-17 08:02] LABS: ALBUMIN 3.9 g/dL (3.4-5.0); ALBUMIN/GLOBULIN RATIO 1.2 (1.0-1.7); CALCIUM 8.7 mg/dL (8.5-10.1); CREATININE 0.9 mg/dL (0.7-1.3); GFR 107.6; POTASSIUM 3.9 mmol/L (3.5-5.1); TOTAL BILIRUBIN 0.3 mg/dL (0.2-1.0); TOTAL PROTEIN 7.1 g/dL (6.4-8.2)
[2020-12-17 08:29] LABS: DIRECT BILIRUBIN 0.2 mg/dL (0.0-0.2)
[2020-12-17] MEDS: PANTOPRAZOLE IV PUSH 40 MG VIAL. IVP SCH (09:32)
--- NOTE | 2020-12-17 10:14 | PDOC ---
LYNSEY TANG MORTGAGE SERVICING SPECIALIST 12/17/20 1014: SURGICAL PROGRESS NOTE DATE: 12/17/20 TIME: 10:09 Subjective ercp, stent done now with pancreatitis, Covid + d.w gi, bowel rest will FU in AM Vital Signs Vital Signs Date Time Temp Pulse Resp B/P (MAP) Pulse Ox O2 Delivery O2 Flow Rate FiO2 12/17/20 09:33 Room Air 12/17/20 07:00 98.9 60 18 115/40 (65) 96 98.9 12/16/20 18:45 6 I&O Intake and Output 12/17/20 07:00 Intake Total 2400 ml Balance 2400 ml Intake Oral 0 ml IV Total 2400 ml # Voids 3 Labs Laboratory Tests Test 12/15/20 13:20 12/16/20 10:45 12/16/20 11:45 12/16/20 13:55 White Blood Count 4.2 x10^3/uL (4.0-11.0) 6.3 x10^3/uL (4.0-11.0) Red Blood Count 3.61 x10^6/uL (4.30-5.70) 3.91 x10^6/uL (4.30-5.70) Hemoglobin 11.2 g/dL (13.0-17.5) 12.2 g/dL (13.0-17.5) Hematocrit 32.1 % (39.0-53.0) 34.8 % (39.0-53.0) Mean Corpuscular Volume 89 fL (79-100) 89 fL (79-100) Mean Corpuscular Hemoglobin 31 pg (25-35) 31 pg (25-35) Mean Corpuscular Hemoglobin Concent 35 g/dL (31-37) 35 g/dL (31-37) Red Cell Distribution Width 12.6 % (11.5-14.5) 12.6 % (11.5-14.5) Platelet Count 193 x10^3/uL (140-400) 190 x10^3/uL (140-400) Neutrophils (%) (Auto) 74 % (31-73) 80 % (31-73) Lymphocytes (%) (Auto) 14 % (24-48) 12 % (24-48) Monocytes (%) (Auto) 12 % (0-9) 7 % (0-9) Eosinophils (%) (Auto) 0 % (0-3) 1 % (0-3) Basophils (%) (Auto) 0 % (0-3) 1 % (0-3) Neutrophils # (Auto) 3.1 x10^3/uL (1.8-7.7) 5.0 x10^3/uL (1.8-7.7) Lymphocytes # (Auto) 0.6 x10^3/uL (1.0-4.8) 0.7 x10^3/uL (1.0-4.8) Monocytes # (Auto) 0.5 x10^3/uL (0.0-1.1) 0.5 x10^3/uL (0.0-1.1) Eosinophils # (Auto) 0.0 x10^3/uL (0.0-0.7) 0.0 x10^3/uL (0.0-0.7) Basophils # (Auto) 0.0 x10^3/uL (0.0-0.2) 0.0 x10^3/uL (0.0-0.2) Sodium Level 133 mmol/L (136-145) Potassium Level 3.8 mmol/L (3.5-5.1) Chloride Level 98 mmol/L (98-107) Carbon Dioxide Level 25 mmol/L (21-32) Anion Gap 10 (6-14) Blood Urea Nitrogen 14 mg/dL (8-26) Creatinine 0.9 mg/dL (0.7-1.3) Estimated GFR (Cockcroft-Gault) 107.6 BUN/Creatinine Ratio 16 (6-20) Glucose Level 92 mg/dL (70-99) Calcium Level 8.9 mg/dL (8.5-10.1) Total Bilirubin 0.3 mg/dL (0.2-1.0) Aspartate Amino Transf (AST/SGOT) 101 U/L (15-37) Alanine Aminotransferase (ALT/SGPT) 207 U/L (16-63) Alkaline Phosphatase 86 U/L (46-116) Total Protein 7.3 g/dL (6.4-8.2) Albumin 4.1 g/dL (3.4-5.0) Albumin/Globulin Ratio 1.3 (1.0-1.7) SARS-CoV-2 Antigen (Rapid) Positive (NEGATIVE) Test 12/17/20 06:45 White Blood Count 7.2 x10^3/uL (4.0-11.0) Red Blood Count 3.90 x10^6/uL (4.30-5.70) Hemoglobin 12.2 g/dL (13.0-17.5) Hematocrit 34.8 % (39.0-53.0) Mean Corpuscular Volume 89 fL (79-100) Mean Corpuscular Hemoglobin 31 pg (25-35) Mean Corpuscular Hemoglobin Concent 35 g/dL (31-37) Red Cell Distribution Width 12.6 % (11.5-14.5) Platelet Count 177 x10^3/uL (140-400) Neutrophils (%) (Auto) 80 % (31-73) Lymphocytes (%) (Auto) 12 % (24-48) Monocytes (%) (Auto) 7 % (0-9) Eosinophils (%) (Auto) 0 % (0-3) Basophils (%) (Auto) 0 % (0-3) Neutrophils # (Auto) 5.8 x10^3/uL (1.8-7.7) Lymphocytes # (Auto) 0.9 x10^3/uL (1.0-4.8) Monocytes # (Auto) 0.5 x10^3/uL (0.0-1.1) Eosinophils # (Auto) 0.0 x10^3/uL (0.0-0.7) Basophils # (Auto) 0.0 x10^3/uL (0.0-0.2) Sodium Level 135 mmol/L (136-145) Potassium Level 3.9 mmol/L (3.5-5.1) Chloride Level 101 mmol/L (98-107) Carbon Dioxide Level 27 mmol/L (21-32) Anion Gap 7 (6-14) Blood Urea Nitrogen 14 mg/dL (8-26) Creatinine 0.9 mg/dL (0.7-1.3) Estimated GFR (Cockcroft-Gault) 107.6 BUN/Creatinine Ratio 16 (6-20) Glucose Level 112 mg/dL (70-99) Calcium Level 8.7 mg/dL (8.5-10.1) Total Bilirubin 0.3 mg/dL (0.2-1.0) Direct Bilirubin 0.2 mg/dL (0.0-0.2) Aspartate Amino Transf (AST/SGOT) 95 U/L (15-37) Alanine Aminotransferase (ALT/SGPT) 185 U/L (16-63) Alkaline Phosphatase 97 U/L (46-116) Total Protein 7.1 g/dL (6.4-8.2) Albumin 3.9 g/dL (3.4-5.0) Albumin/Globulin Ratio 1.2 (1.0-1.7) Amylase Level 1192 U/L (25-115) Lipase 70183 U/L (73-393) Laboratory Tests Test 12/16/20 10:45 12/16/20 11:45 12/16/20 13:55 12/17/20 06:45 Sodium Level 133 mmol/L (136-145) 135 mmol/L (136-145) Potassium Level 3.8 mmol/L (3.5-5.1) 3.9 mmol/L (3.5-5.1) Chloride Level 98 mmol/L (98-107) 101 mmol/L (98-107) Carbon Dioxide Level 25 mmol/L (21-32) 27 mmol/L (21-32) Anion Gap 10 (6-14) 7 (6-14) Blood Urea Nitrogen 14 mg/dL (8-26) 14 mg/dL (8-26) Creatinine 0.9 mg/dL (0.7-1.3) 0.9 mg/dL (0.7-1.3) Estimated GFR (Cockcroft-Gault) 107.6 107.6 BUN/Creatinine Ratio 16 (6-20) 16 (6-20) Glucose Level 92 mg/dL (70-99) 112 mg/dL (70-99) Calcium Level 8.9 mg/dL (8.5-10.1) 8.7 mg/dL (8.5-10.1) Total Bilirubin 0.3 mg/dL (0.2-1.0) 0.3 mg/dL (0.2-1.0) Aspartate Amino Transf (AST/SGOT) 101 U/L (15-37) 95 U/L (15-37) Alanine Aminotransferase (ALT/SGPT) 207 U/L (16-63) 185 U/L (16-63) Alkaline Phosphatase 86 U/L (46-116) 97 U/L (46-116) Total Protein 7.3 g/dL (6.4-8.2) 7.1 g/dL (6.4-8.2) Albumin 4.1 g/dL (3.4-5.0) 3.9 g/dL (3.4-5.0) Albumin/Globulin Ratio 1.3 (1.0-1.7) 1.2 (1.0-1.7) White Blood Count 6.3 x10^3/uL (4.0-11.0) 7.2 x10^3/uL (4.0-11.0) Red Blood Count 3.91 x10^6/uL (4.30-5.70) 3.90 x10^6/uL (4.30-5.70) Hemoglobin 12.2 g/dL (13.0-17.5) 12.2 g/dL (13.0-17.5) Hematocrit 34.8 % (39.0-53.0) 34.8 % (39.0-53.0) Mean Corpuscular Volume 89 fL (79-100) 89 fL (79-100) Mean Corpuscular Hemoglobin 31 pg (25-35) 31 pg (25-35) Mean Corpuscular Hemoglobin Concent 35 g/dL (31-37) 35 g/dL (31-37) Red Cell Distribution Width 12.6 % (11.5-14.5) 12.6 % (11.5-14.5) Platelet Count 190 x10^3/uL (140-400) 177 x10^3/uL (140-400) Neutrophils (%) (Auto) 80 % (31-73) 80 % (31-73) Lymphocytes (%) (Auto) 12 % (24-48) 12 % (24-48) Monocytes (%) (Auto) 7 % (0-9) 7 % (0-9) Eosinophils (%) (Auto) 1 % (0-3) 0 % (0-3) Basophils (%) (Auto) 1 % (0-3) 0 % (0-3) Neutrophils # (Auto) 5.0 x10^3/uL (1.8-7.7) 5.8 x10^3/uL (1.8-7.7) Lymphocytes # (Auto) 0.7 x10^3/uL (1.0-4.8) 0.9 x10^3/uL (1.0-4.8) Monocytes # (Auto) 0.5 x10^3/uL (0.0-1.1) 0.5 x10^3/uL (0.0-1.1) Eosinophils # (Auto) 0.0 x10^3/uL (0.0-0.7) 0.0 x10^3/uL (0.0-0.7) Basophils # (Auto) 0.0 x10^3/uL (0.0-0.2) 0.0 x10^3/uL (0.0-0.2) SARS-CoV-2 Antigen (Rapid) Positive (NEGATIVE) Direct Bilirubin 0.2 mg/dL (0.0-0.2) Amylase Level 1192 U/L (25-115) Lipase 29161 U/L (73-393) Problem List Problems Medical Problems: (1) Abdominal pain Status: Acute Justicifation of Admission Dx: Justifications for Admission: Justification of Admission Dx: Yes Comments: bile leak JOHANNY OBANDO MD 12/17/20 1246: SURGICAL PROGRESS NOTE Assessment/Plan Patient sleeping did not wake status post ERCP with post procedure pancreatitis lipase 12,000. Agree with bowel rest IV hydration hopefully pancreatitis resolved quickly and start diet. ERCP showed no biliary system leak stent placed. Likely ducts of Luschka leak. Noted the patient is also Covid positive. Agree with [place] assessment plan LYNSEY TANG APRN Dec 17, 2020 10:14 JOHANNY OBANDO MD Dec 17, 2020 12:46
--- NOTE | 2020-12-17 10:27 | NUR ---
SW following. Discussed with RN, pt from home with mother, room air, NPO, rapid COVID-19 positive. Pt had an ERCP yesterday. GI and Surgery following. RN advised no SW needs at this time. SW will continue to follow.
--- NOTE | 2020-12-17 10:52 | PDOC ---
Date of Service: DATE: 12/17/20 TIME: 10:41 Subjective: Subjective: I saw the patient around 8:45 a.m. He feels ten times worse today. He is gagging and vomiting, his abdomen hurts all over, he isn't passing gas, and he doesn't think any of this is normal. I left the room to check if labs were resulted and returned to discuss post-ERCP pancreatitis w/ pt and mother via speakerphone. They are concerned and want to know the worst case scenario. I explained some patients can get very ill with pancreatitis which is why we continue to monitor labs closely. They are concerned that he is already thin and not getting nutrients and food. We discussed he is currently on PPN. TPN is an option in the future if symptoms aren't improved. Discussed possible need for interval CT. They want to know how long this will take for him to feel better. Morphine doesn't really work but he is also hesitant to take other pain medications - names oxycodone. Zofran doesn't really help. He's not sure he has COVID and his mother is concerned she can't be here with him. Discussed all w/ nurse and surgery/[place]. Objective: Objective: D/w Dr. Khanna - unfortunately pancreatitis not unexpected w/ tight duct requiring difficult stent placement. Vital Signs: Vital Signs Date Time Temp Pulse Resp B/P (MAP) Pulse Ox O2 Delivery O2 Flow Rate FiO2 12/17/20 09:33 Room Air 12/17/20 07:00 98.9 60 18 115/40 (65) 96 98.9 12/16/20 18:45 6 Labs: Laboratory Tests Test 12/16/20 10:45 12/16/20 11:45 12/16/20 13:35 12/16/20 13:55 Sodium Level 133 mmol/L Potassium Level 3.8 mmol/L Chloride Level 98 mmol/L Carbon Dioxide Level 25 mmol/L Anion Gap 10 Blood Urea Nitrogen 14 mg/dL Creatinine 0.9 mg/dL Estimated GFR (Cockcroft-Gault) 107.6 BUN/Creatinine Ratio 16 Glucose Level 92 mg/dL Calcium Level 8.9 mg/dL Total Bilirubin 0.3 mg/dL Aspartate Amino Transf (AST/SGOT) 101 U/L Alanine Aminotransferase (ALT/SGPT) 207 U/L Alkaline Phosphatase 86 U/L Total Protein 7.3 g/dL Albumin 4.1 g/dL Albumin/Globulin Ratio 1.3 White Blood Count 6.3 x10^3/uL Red Blood Count 3.91 x10^6/uL Hemoglobin 12.2 g/dL Hematocrit 34.8 % Mean Corpuscular Volume 89 fL Mean Corpuscular Hemoglobin 31 pg Mean Corpuscular Hemoglobin Concent 35 g/dL Red Cell Distribution Width 12.6 % Platelet Count 190 x10^3/uL Neutrophils (%) (Auto) 80 % Lymphocytes (%) (Auto) 12 % Monocytes (%) (Auto) 7 % Eosinophils (%) (Auto) 1 % Basophils (%) (Auto) 1 % Neutrophils # (Auto) 5.0 x10^3/uL Lymphocytes # (Auto) 0.7 x10^3/uL Monocytes # (Auto) 0.5 x10^3/uL Eosinophils # (Auto) 0.0 x10^3/uL Basophils # (Auto) 0.0 x10^3/uL SARS-CoV-2 RNA ([place]) Positive SARS-CoV-2 Antigen (Rapid) Positive Test 12/17/20 06:45 White Blood Count 7.2 x10^3/uL Red Blood Count 3.90 x10^6/uL Hemoglobin 12.2 g/dL Hematocrit 34.8 % Mean Corpuscular Volume 89 fL Mean Corpuscular Hemoglobin 31 pg Mean Corpuscular Hemoglobin Concent 35 g/dL Red Cell Distribution Width 12.6 % Platelet Count 177 x10^3/uL Neutrophils (%) (Auto) 80 % Lymphocytes (%) (Auto) 12 % Monocytes (%) (Auto) 7 % Eosinophils (%) (Auto) 0 % Basophils (%) (Auto) 0 % Neutrophils # (Auto) 5.8 x10^3/uL Lymphocytes # (Auto) 0.9 x10^3/uL Monocytes # (Auto) 0.5 x10^3/uL Eosinophils # (Auto) 0.0 x10^3/uL Basophils # (Auto) 0.0 x10^3/uL Sodium Level 135 mmol/L Potassium Level 3.9 mmol/L Chloride Level 101 mmol/L Carbon Dioxide Level 27 mmol/L Anion Gap 7 Blood Urea Nitrogen 14 mg/dL Creatinine 0.9 mg/dL Estimated GFR (Cockcroft-Gault) 107.6 BUN/Creatinine Ratio 16 Glucose Level 112 mg/dL Calcium Level 8.7 mg/dL Total Bilirubin 0.3 mg/dL Direct Bilirubin 0.2 mg/dL Aspartate Amino Transf (AST/SGOT) 95 U/L Alanine Aminotransferase (ALT/SGPT) 185 U/L Alkaline Phosphatase 97 U/L Total Protein 7.1 g/dL Albumin 3.9 g/dL Albumin/Globulin Ratio 1.2 Amylase Level 1192 U/L Lipase 63838 U/L Imaging: HIDA IMPRESSION: Focal radiotracer uptake in the right upper quadrant is suspicious for bile leak . ERCP FINDINGS: Images demonstrate the endoscope and catheterization and contrast injection first of the pancreatic duct followed by contrast injection of the bile ducts with sweeping of the bile ducts with a catheter followed by placement of a biliary stent. ERCP with stent placement Preop dx abd pain s/p sera with possible bile leak Postop dx intact CBD with duct of Luschka leak s/p 7 Fr 7 cm stent placement Plan am labs advance diet if no complications from ERCP PE: GEN: uncomfortable, moaning, yelling "ow!," retching, spitting bile/phlegm into emesis bucket LUNGS: CTAB HEART: RRR ABD: soft, quiet, diffuse discomfort - exam somewhat challenging w/ moaning/retching NEURO/PSYCH: A & O 3, anxious A/P: Bile leak s/p ERCP/stent, post-ERCP pancreatitis COVID-19 infection -- Not feeling well today - multi-factorial w/ all above issues. Time spent w/ pt and mother on phone, attempted to answer all questions - they are very concerned. Close monitoring, follow labs, consider interval imaging. Supportive care w/ fluids (has PPN), anti-emetics, acid-cosmetic maker. Pain control per primary. Justicifation of Admission Dx: Justifications for Admission: Justification of Admission Dx: Yes JOSE ELIAS JAMA Dec 17, 2020 10:52
[2020-12-17 11:00] VITALS: BP 113/65
[2020-12-17] MEDS ORDERED: PROCHLORPERAZINE 10 MG/2 ML VIAL. IV PRN (11:00)
--- NOTE | 2020-12-17 13:23 | PDOC ---
[employer] PROGRESS NOTE Date of Service DOS: DATE: 12/17/20 TIME: 13:17 Chief Complaint Chief Complaint Postoperative changes of possible bile leak and/or hemoperitoneum and possible pyelonephritis with incidental finding of hypokalemia. The patient has been admitted. We will give him IV antibiotics, IV fluids, replace his potassium. consult his surgeon, consult GI. Trend labs. Home meds, deep venous thrombosis prophylaxis. Full code. History of Present Illness History of Present Illness Mr Ware is a 20-year-old healthy male who had a laparoscopic cholecystectomy on Wednesday of this week. He has been doing well at first, but then he has developed abdominal pain and nausea, vomiting. He has not had a bowel movement for several days. His mom brought him to the hospital. We did some imaging of his abdomen, which is showing postoperative changes of a laparoscopic cholecystectomy, but there is also some fluid collection in the right paracolic gutter and pelvis. We were concerned this could be a hemoperitoneum or a mixture of hemoperitoneum and bile leak Admit the patient and consult GI and general surgery. 12/16/2020: Afebrile, no acute events overnight. To ERCP with stenting COVID-19 returned positive. His lipase over 12,000 today having some nausea with a lot of pain overnight did not tolerate oxycodone well certainly n.p.o. family prefers morphine for pain. Vitals/I&O Vitals/I&O: Vital Signs Date Time Temp Pulse Resp B/P (MAP) Pulse Ox O2 Delivery O2 Flow Rate FiO2 12/17/20 09:33 Room Air 12/17/20 07:00 98.9 60 18 115/40 (65) 96 98.9 12/16/20 18:45 6 I & O 12/16/20 12/16/20 12/17/20 15:00 23:00 07:00 Intake Total 1400 ml 1000 ml Balance 1400 ml 1000 ml Physical Exam General: Alert, Oriented X3, Cooperative, mild distress Heart: Regular rate, Normal S1, Normal S2 Lungs: Clear Abdomen: Soft, Other (lap sites intact, no signs of infection, TTP RUQ) Extremities: No clubbing, No cyanosis Skin: No rashes, No breakdown Labs Labs: Laboratory Tests Test 12/16/20 13:35 12/16/20 13:55 8/17/21 06:45 SARS-CoV-2 RNA ([place]) Positive (Negative) SARS-CoV-2 Antigen (Rapid) Positive (NEGATIVE) White Blood Count 7.2 x10^3/uL (4.0-11.0) Red Blood Count 3.90 x10^6/uL (4.30-5.70) Hemoglobin 12.2 g/dL (13.0-17.5) Hematocrit 34.8 % (39.0-53.0) Mean Corpuscular Volume 89 fL (79-100) Mean Corpuscular Hemoglobin 31 pg (25-35) Mean Corpuscular Hemoglobin Concent 35 g/dL (31-37) Red Cell Distribution Width 12.6 % (11.5-14.5) Platelet Count 177 x10^3/uL (140-400) Neutrophils (%) (Auto) 80 % (31-73) Lymphocytes (%) (Auto) 12 % (24-48) Monocytes (%) (Auto) 7 % (0-9) Eosinophils (%) (Auto) 0 % (0-3) Basophils (%) (Auto) 0 % (0-3) Neutrophils # (Auto) 5.8 x10^3/uL (1.8-7.7) Lymphocytes # (Auto) 0.9 x10^3/uL (1.0-4.8) Monocytes # (Auto) 0.5 x10^3/uL (0.0-1.1) Eosinophils # (Auto) 0.0 x10^3/uL (0.0-0.7) Basophils # (Auto) 0.0 x10^3/uL (0.0-0.2) Sodium Level 135 mmol/L (136-145) Potassium Level 3.9 mmol/L (3.5-5.1) Chloride Level 101 mmol/L (98-107) Carbon Dioxide Level 27 mmol/L (21-32) Anion Gap 7 (6-14) Blood Urea Nitrogen 14 mg/dL (8-26) Creatinine 0.9 mg/dL (0.7-1.3) Estimated GFR (Cockcroft-Gault) 107.6 BUN/Creatinine Ratio 16 (6-20) Glucose Level 112 mg/dL (70-99) Calcium Level 8.7 mg/dL (8.5-10.1) Total Bilirubin 0.3 mg/dL (0.2-1.0) Direct Bilirubin 0.2 mg/dL (0.0-0.2) Aspartate Amino Transf (AST/SGOT) 95 U/L (15-37) Alanine Aminotransferase (ALT/SGPT) 185 U/L (16-63) Alkaline Phosphatase 97 U/L (46-116) Total Protein 7.1 g/dL (6.4-8.2) Albumin 3.9 g/dL (3.4-5.0) Albumin/Globulin Ratio 1.2 (1.0-1.7) Amylase Level 1192 U/L (25-115) Lipase 42068 U/L (73-393) Assessment and Plan Assessmemt and Plan Problems Medical Problems: (1) Abdominal pain Status: Acute Comment Review of Relevant I have reviewed the following items rosalia (where applicable) has been applied. Medications: Current Medications Medications (Trade) Dose Ordered Sig/[place] Route PRN Reason Start Time Stop Time Status Last Admin Dose Admin Ringer's Solution 1,000 ml @ 50 mls/hr Q20H IV 12/16/20 15:45 12/17/20 03:44 DC 12/16/20 16:25 Oxycodone HCl (Roxicodone) 5 mg PRN Q6HRS PRN PO SEVERE PAIN 7-10 12/16/20 21:15 12/16/20 23:16 Ondansetron HCl (Zofran) 4 mg PRN Q4HRS PRN IVP NAUSEA/VOMITING 1ST CHOICE 12/17/20 00:45 12/17/20 10:19 Morphine Sulfate (Morphine Sulfate) 2 mg PRN Q3HRS PRN IVP SEVERE PAIN 7-10 12/17/20 00:45 12/17/20 09:33 Justifications for Admission Other Justification STEVAN BAIBN MD Dec 17, 2020 13:23
[2020-12-17] MEDS: cefTRIAXone IV Push 1 GM VIAL. IVP SCH (14:37)
[2020-12-17 15:00] VITALS: BP 115/57
[2020-12-17 19:00] VITALS: BP 122/71
[2020-12-17 23:00] VITALS: BP 102/48
[2020-12-18] MEDS: ONDANSETRON PF 4 MG/2 ML VIAL. IVP PRN (01:55)
[2020-12-18] MEDS: MORPHINE SULFATE 2 MG/ML INJ. IVP PRN ×2 (01:55→11:29)
[2020-12-18 03:00] VITALS: BP 110/50
[2020-12-18 06:15] LABS: BASO % 0 % (0-3); EOS % 0 % (0-3); HEMATOCRIT 35.1 % (39.0-53.0); HEMOGLOBIN 12.5 g/dL (13.0-17.5); LYMPH % 11 % (24-48); MEAN CORPUSCULAR HEMOGLOBIN 31 pg (25-35); MEAN CORPUSCULAR HGB CONC 36 g/dL (31-37); MEAN CORPUSCULAR VOLUME 88 fL (79-100); MONO # 0.7 x10^3/uL (0.0-1.1); MONO % 8 % (0-9); NEUT % 80 % (31-73); PLATELET COUNT 177 x10^3/uL (140-400); RED CELL DISTRIBUTION WIDTH 12.3 % (11.5-14.5); WHITE BLOOD COUNT 8.8 x10^3/uL (4.0-11.0)
[2020-12-18 07:00] VITALS: BP 108/52
[2020-12-18 07:16] LABS: ALBUMIN 3.8 g/dL (3.4-5.0); CALCIUM 8.8 mg/dL (8.5-10.1); CREATININE 0.7 mg/dL (0.7-1.3); DIRECT BILIRUBIN 0.1 mg/dL (0.0-0.2); GFR 143.8; POTASSIUM 4.2 mmol/L (3.5-5.1); TOTAL BILIRUBIN 0.3 mg/dL (0.2-1.0); TOTAL PROTEIN 7.1 g/dL (6.4-8.2)
[2020-12-18 07:17] LABS: AMYLASE 730 U/L (25-115); LIPASE 3857 U/L (73-393)
--- NOTE | 2020-12-18 08:21 | PDOC ---
[employer] PROGRESS NOTE Date of Service DOS: DATE: 12/18/20 TIME: 08:21 Chief Complaint Chief Complaint Bile leak s/p ERCP/stent Post-ERCP pancreatitis COVID-19 - not hypoxic, no symptoms Hypokalemia. Hyponatremia History of Present Illness History of Present Illness Mr Ware is a 20-year-old healthy male who had a laparoscopic cholecystectomy on Wednesday of this week. He has been doing well at first, but then he has developed abdominal pain and nausea, vomiting. He has not had a bowel movement for several days. His mom brought him to the hospital. We did some imaging of his abdomen, which is showing postoperative changes of a laparoscopic ch olecystectomy, but there is also some fluid collection in the right paracolic gutter and pelvis. We were concerned this could be a hemoperitoneum or a mixture of hemoperitoneum and bile leak Admit the patient and consult GI and general surgery. 12/16/2020: Afebrile, no acute events overnight. To ERCP with stenting 12/17: COVID-19 returned positive. His lipase over 12,000 today having some nausea with a lot of pain overnight did not tolerate oxycodone well certainly n.p.o. family prefers morphine for pain. Labs improving lipase level is trending down. Afebrile no O2 requirements. Tolerating sips well. Sodium improved potassium improved. Discussed with him and his mother. Vitals/I&O Vitals/I&O: Vital Signs Date Time Temp Pulse Resp B/P (MAP) Pulse Ox O2 Delivery O2 Flow Rate FiO2 12/18/20 03:00 98.4 60 20 110/50 (70) 96 Room Air 98.4 I & O 12/17/20 12/17/20 12/18/20 15:00 23:00 07:00 Intake Total 1000 ml 100 ml Output Total 20 ml Balance -20 ml 1000 ml 100 ml Physical Exam General: Alert, Oriented X3, Cooperative, mild distress Heart: Regular rate, Normal S1, Normal S2 Lungs: Clear Abdomen: Soft, Other (lap sites intact, no signs of infection, TTP RUQ) Extremities: No clubbing, No cyanosis Skin: No rashes, No breakdown Labs Labs: Laboratory Tests Test 12/18/20 05:05 White Blood Count 8.8 x10^3/uL (4.0-11.0) Red Blood Count 4.00 x10^6/uL (4.30-5.70) Hemoglobin 12.5 g/dL (13.0-17.5) Hematocrit 35.1 % (39.0-53.0) Mean Corpuscular Volume 88 fL (79-100) Mean Corpuscular Hemoglobin 31 pg (25-35) Mean Corpuscular Hemoglobin Concent 36 g/dL (31-37) Red Cell Distribution Width 12.3 % (11.5-14.5) Platelet Count 177 x10^3/uL (140-400) Neutrophils (%) (Auto) 80 % (31-73) Lymphocytes (%) (Auto) 11 % (24-48) Monocytes (%) (Auto) 8 % (0-9) Eosinophils (%) (Auto) 0 % (0-3) Basophils (%) (Auto) 0 % (0-3) Neutrophils # (Auto) 7.0 x10^3/uL (1.8-7.7) Lymphocytes # (Auto) 1.0 x10^3/uL (1.0-4.8) Monocytes # (Auto) 0.7 x10^3/uL (0.0-1.1) Eosinophils # (Auto) 0.0 x10^3/uL (0.0-0.7) Basophils # (Auto) 0.0 x10^3/uL (0.0-0.2) Sodium Level 140 mmol/L (136-145) Potassium Level 4.2 mmol/L (3.5-5.1) Chloride Level 102 mmol/L (98-107) Carbon Dioxide Level 26 mmol/L (21-32) Anion Gap 12 (6-14) Blood Urea Nitrogen 18 mg/dL (8-26) Creatinine 0.7 mg/dL (0.7-1.3) Estimated GFR (Cockcroft-Gault) 143.8 Glucose Level 108 mg/dL (70-99) Calcium Level 8.8 mg/dL (8.5-10.1) Total Bilirubin 0.3 mg/dL (0.2-1.0) Direct Bilirubin 0.1 mg/dL (0.0-0.2) Aspartate Amino Transf (AST/SGOT) 47 U/L (15-37) Alanine Aminotransferase (ALT/SGPT) 137 U/L (16-63) Alkaline Phosphatase 87 U/L (46-116) Total Protein 7.1 g/dL (6.4-8.2) Albumin 3.8 g/dL (3.4-5.0) Amylase Level 730 U/L (25-115) Lipase 3857 U/L (73-393) Assessment and Plan Assessmemt and Plan Problems Medical Problems: (1) Abdominal pain Status: Acute Comment Review of Relevant I have reviewed the following items rosalia (where applicable) has been applied. Justifications for Admission Other Justification STEVAN BABIN MD Dec 18, 2020 08:21
[2020-12-18] MEDS: PANTOPRAZOLE IV PUSH 40 MG VIAL. IVP SCH (09:07)
[2020-12-18] MEDS: AA 4.25 %/CALCIUM/LYTES/D5W 1,000 ML IV SCH ×2 (09:08→20:29)
--- NOTE | 2020-12-18 10:01 | PDOC ---
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 12/18/20 1001: SURGICAL PROGRESS NOTE DATE: 12/18/20 TIME: 10:00 Subjective overall feels better less pain today Vital Signs Vital Signs Date Time Temp Pulse Resp B/P (MAP) Pulse Ox O2 Delivery O2 Flow Rate FiO2 12/18/20 08:30 Room Air 12/18/20 07:00 98.8 72 20 108/52 (70) 98 98.8 I&O Intake and Output 12/18/20 07:00 Intake Total 1100 ml Output Total 20 ml Balance 1080 ml Intake Oral 100 ml IV Total 1000 ml Output Emesis 20 ml # Voids 7 # Bowel Movements 2 General: Alert, Oriented X3, Cooperative Abdomen: Soft, Other (lap sites intact ) Labs Laboratory Tests Test 12/16/20 10:45 12/16/20 11:45 12/16/20 13:35 12/16/20 13:55 Sodium Level 133 mmol/L (136-145) Potassium Level 3.8 mmol/L (3.5-5.1) Chloride Level 98 mmol/L (98-107) Carbon Dioxide Level 25 mmol/L (21-32) Anion Gap 10 (6-14) Blood Urea Nitrogen 14 mg/dL (8-26) Creatinine 0.9 mg/dL (0.7-1.3) Estimated GFR (Cockcroft-Gault) 107.6 BUN/Creatinine Ratio 16 (6-20) Glucose Level 92 mg/dL (70-99) Calcium Level 8.9 mg/dL (8.5-10.1) Total Bilirubin 0.3 mg/dL (0.2-1.0) Aspartate Amino Transf (AST/SGOT) 101 U/L (15-37) Alanine Aminotransferase (ALT/SGPT) 207 U/L (16-63) Alkaline Phosphatase 86 U/L (46-116) Total Protein 7.3 g/dL (6.4-8.2) Albumin 4.1 g/dL (3.4-5.0) Albumin/Globulin Ratio 1.3 (1.0-1.7) White Blood Count 6.3 x10^3/uL (4.0-11.0) Red Blood Count 3.91 x10^6/uL (4.30-5.70) Hemoglobin 12.2 g/dL (13.0-17.5) Hematocrit 34.8 % (39.0-53.0) Mean Corpuscular Volume 89 fL (79-100) Mean Corpuscular Hemoglobin 31 pg (25-35) Mean Corpuscular Hemoglobin Concent 35 g/dL (31-37) Red Cell Distribution Width 12.6 % (11.5-14.5) Platelet Count 190 x10^3/uL (140-400) Neutrophils (%) (Auto) 80 % (31-73) Lymphocytes (%) (Auto) 12 % (24-48) Monocytes (%) (Auto) 7 % (0-9) Eosinophils (%) (Auto) 1 % (0-3) Basophils (%) (Auto) 1 % (0-3) Neutrophils # (Auto) 5.0 x10^3/uL (1.8-7.7) Lymphocytes # (Auto) 0.7 x10^3/uL (1.0-4.8) Monocytes # (Auto) 0.5 x10^3/uL (0.0-1.1) Eosinophils # (Auto) 0.0 x10^3/uL (0.0-0.7) Basophils # (Auto) 0.0 x10^3/uL (0.0-0.2) SARS-CoV-2 RNA ([place]) Positive (Negative) SARS-CoV-2 Antigen (Rapid) Positive (NEGATIVE) Test 12/17/20 06:45 12/18/20 05:05 White Blood Count 7.2 x10^3/uL (4.0-11.0) 8.8 x10^3/uL (4.0-11.0) Red Blood Count 3.90 x10^6/uL (4.30-5.70) 4.00 x10^6/uL (4.30-5.70) Hemoglobin 12.2 g/dL (13.0-17.5) 12.5 g/dL (13.0-17.5) Hematocrit 34.8 % (39.0-53.0) 35.1 % (39.0-53.0) Mean Corpuscular Volume 89 fL (79-100) 88 fL (79-100) Mean Corpuscular Hemoglobin 31 pg (25-35) 31 pg (25-35) Mean Corpuscular Hemoglobin Concent 35 g/dL (31-37) 36 g/dL (31-37) Red Cell Distribution Width 12.6 % (11.5-14.5) 12.3 % (11.5-14.5) Platelet Count 177 x10^3/uL (140-400) 177 x10^3/uL (140-400) Neutrophils (%) (Auto) 80 % (31-73) 80 % (31-73) Lymphocytes (%) (Auto) 12 % (24-48) 11 % (24-48) Monocytes (%) (Auto) 7 % (0-9) 8 % (0-9) Eosinophils (%) (Auto) 0 % (0-3) 0 % (0-3) Basophils (%) (Auto) 0 % (0-3) 0 % (0-3) Neutrophils # (Auto) 5.8 x10^3/uL (1.8-7.7) 7.0 x10^3/uL (1.8-7.7) Lymphocytes # (Auto) 0.9 x10^3/uL (1.0-4.8) 1.0 x10^3/uL (1.0-4.8) Monocytes # (Auto) 0.5 x10^3/uL (0.0-1.1) 0.7 x10^3/uL (0.0-1.1) Eosinophils # (Auto) 0.0 x10^3/uL (0.0-0.7) 0.0 x10^3/uL (0.0-0.7) Basophils # (Auto) 0.0 x10^3/uL (0.0-0.2) 0.0 x10^3/uL (0.0-0.2) Sodium Level 135 mmol/L (136-145) 140 mmol/L (136-145) Potassium Level 3.9 mmol/L (3.5-5.1) 4.2 mmol/L (3.5-5.1) Chloride Level 101 mmol/L (98-107) 102 mmol/L (98-107) Carbon Dioxide Level 27 mmol/L (21-32) 26 mmol/L (21-32) Anion Gap 7 (6-14) 12 (6-14) Blood Urea Nitrogen 14 mg/dL (8-26) 18 mg/dL (8-26) Creatinine 0.9 mg/dL (0.7-1.3) 0.7 mg/dL (0.7-1.3) Estimated GFR (Cockcroft-Gault) 107.6 143.8 BUN/Creatinine Ratio 16 (6-20) Glucose Level 112 mg/dL (70-99) 108 mg/dL (70-99) Calcium Level 8.7 mg/dL (8.5-10.1) 8.8 mg/dL (8.5-10.1) Total Bilirubin 0.3 mg/dL (0.2-1.0) 0.3 mg/dL (0.2-1.0) Direct Bilirubin 0.2 mg/dL (0.0-0.2) 0.1 mg/dL (0.0-0.2) Aspartate Amino Transf (AST/SGOT) 95 U/L (15-37) 47 U/L (15-37) Alanine Aminotransferase (ALT/SGPT) 185 U/L (16-63) 137 U/L (16-63) Alkaline Phosphatase 97 U/L (46-116) 87 U/L (46-116) Total Protein 7.1 g/dL (6.4-8.2) 7.1 g/dL (6.4-8.2) Albumin 3.9 g/dL (3.4-5.0) 3.8 g/dL (3.4-5.0) Albumin/Globulin Ratio 1.2 (1.0-1.7) Amylase Level 1192 U/L (25-115) 730 U/L (25-115) Lipase 96373 U/L (73-393) 3857 U/L (73-393) Laboratory Tests Test 12/18/20 05:05 White Blood Count 8.8 x10^3/uL (4.0-11.0) Red Blood Count 4.00 x10^6/uL (4.30-5.70) Hemoglobin 12.5 g/dL (13.0-17.5) Hematocrit 35.1 % (39.0-53.0) Mean Corpuscular Volume 88 fL (79-100) Mean Corpuscular Hemoglobin 31 pg (25-35) Mean Corpuscular Hemoglobin Concent 36 g/dL (31-37) Red Cell Distribution Width 12.3 % (11.5-14.5) Platelet Count 177 x10^3/uL (140-400) Neutrophils (%) (Auto) 80 % (31-73) Lymphocytes (%) (Auto) 11 % (24-48) Monocytes (%) (Auto) 8 % (0-9) Eosinophils (%) (Auto) 0 % (0-3) Basophils (%) (Auto) 0 % (0-3) Neutrophils # (Auto) 7.0 x10^3/uL (1.8-7.7) Lymphocytes # (Auto) 1.0 x10^3/uL (1.0-4.8) Monocytes # (Auto) 0.7 x10^3/uL (0.0-1.1) Eosinophils # (Auto) 0.0 x10^3/uL (0.0-0.7) Basophils # (Auto) 0.0 x10^3/uL (0.0-0.2) Sodium Level 140 mmol/L (136-145) Potassium Level 4.2 mmol/L (3.5-5.1) Chloride Level 102 mmol/L (98-107) Carbon Dioxide Level 26 mmol/L (21-32) Anion Gap 12 (6-14) Blood Urea Nitrogen 18 mg/dL (8-26) Creatinine 0.7 mg/dL (0.7-1.3) Estimated GFR (Cockcroft-Gault) 143.8 Glucose Level 108 mg/dL (70-99) Calcium Level 8.8 mg/dL (8.5-10.1) Total Bilirubin 0.3 mg/dL (0.2-1.0) Direct Bilirubin 0.1 mg/dL (0.0-0.2) Aspartate Amino Transf (AST/SGOT) 47 U/L (15-37) Alanine Aminotransferase (ALT/SGPT) 137 U/L (16-63) Alkaline Phosphatase 87 U/L (46-116) Total Protein 7.1 g/dL (6.4-8.2) Albumin 3.8 g/dL (3.4-5.0) Amylase Level 730 U/L (25-115) Lipase 3857 U/L (73-393) Problem List Problems Medical Problems: (1) Abdominal pain Status: Acute Assessment/Plan labs improving d/w advancing diet FU in office 2 weeks Justicifation of Admission Dx: Justifications for Admission: Justification of Admission Dx: Yes JOHANNY OBANDO MD 12/18/20 1300: SURGICAL PROGRESS NOTE Assessment/Plan Patient feeling much better. Advance diet agree with Janel assessment and plan LYNSEY TANG APRN Dec 18, 2020 10:01 JOHANNY OBANDO MD Dec 18, 2020 13:00
[2020-12-18 11:00] VITALS: BP 111/61
--- NOTE | 2020-12-18 11:51 | PDOC ---
Date of Service: DATE: 12/18/20 TIME: 11:47 Subjective: Subjective: Better today. Less pain/vomiting - does cough up some phlegm. Taking some ice chips, would love water. Has some questions about COVID when he's released. Objective: Vital Signs: Vital Signs Date Time Temp Pulse Resp B/P (MAP) Pulse Ox O2 Delivery O2 Flow Rate FiO2 12/18/20 11:00 98.0 73 20 111/61 (78) 99 Room Air 98.0 Labs: Laboratory Tests Test 12/18/20 05:05 White Blood Count 8.8 x10^3/uL Red Blood Count 4.00 x10^6/uL Hemoglobin 12.5 g/dL Hematocrit 35.1 % Mean Corpuscular Volume 88 fL Mean Corpuscular Hemoglobin 31 pg Mean Corpuscular Hemoglobin Concent 36 g/dL Red Cell Distribution Width 12.3 % Platelet Count 177 x10^3/uL Neutrophils (%) (Auto) 80 % Lymphocytes (%) (Auto) 11 % Monocytes (%) (Auto) 8 % Eosinophils (%) (Auto) 0 % Basophils (%) (Auto) 0 % Neutrophils # (Auto) 7.0 x10^3/uL Lymphocytes # (Auto) 1.0 x10^3/uL Monocytes # (Auto) 0.7 x10^3/uL Eosinophils # (Auto) 0.0 x10^3/uL Basophils # (Auto) 0.0 x10^3/uL Sodium Level 140 mmol/L Potassium Level 4.2 mmol/L Chloride Level 102 mmol/L Carbon Dioxide Level 26 mmol/L Anion Gap 12 Blood Urea Nitrogen 18 mg/dL Creatinine 0.7 mg/dL Estimated GFR (Cockcroft-Gault) 143.8 Glucose Level 108 mg/dL Calcium Level 8.8 mg/dL Total Bilirubin 0.3 mg/dL Direct Bilirubin 0.1 mg/dL Aspartate Amino Transf (AST/SGOT) 47 U/L Alanine Aminotransferase (ALT/SGPT) 137 U/L Alkaline Phosphatase 87 U/L Total Protein 7.1 g/dL Albumin 3.8 g/dL Amylase Level 730 U/L Lipase 3857 U/L BLOOD CULTURE Preliminary NO GROWTH AFTER 3 DAYS PE: GEN: NAD - belching some LUNGS: CTAB HEART: RRR ABD: soft, much less tender NEURO/PSYCH: A & O 3, much more calm today A/P: Bile leak s/p ERCP/stent, post-ERCP pancreatitis (better) COVID-19 -- Much better today. Try clear liquids. D/w nurse. Justicifation of Admission Dx: Justifications for Admission: Justification of Admission Dx: Yes JOSE ELIAS JAMA Dec 18, 2020 11:51
[2020-12-18] MEDS ORDERED: MORPHINE SULFATE 2 MG/ML INJ. IVP PRN (14:15)
[2020-12-18] MEDS ORDERED: traMADol 50 MG TABLET PO PRN (14:15)
[2020-12-18] MEDS: cefTRIAXone IV Push 1 GM VIAL. IVP SCH (14:58)
[2020-12-18 15:00] VITALS: BP 120/60
[2020-12-18] MEDS ORDERED: ZOLPIDEM 5 MG TABLET. PO PRN (18:45)
--- NOTE | 2020-12-18 18:45 | NUR ---
Pt having increasing anxiety. Dr. Larsen notified. Orders received. Refer to orders for additional details.
[2020-12-18 19:00] VITALS: BP 107/63
[2020-12-18 23:00] VITALS: BP 102/61
[2020-12-19 03:00] VITALS: BP 128/74
[2020-12-19 07:00] VITALS: BP 130/40
[2020-12-19 08:03] LABS: BASO % 0 % (0-3); EOS % 1 % (0-3); HEMOGLOBIN 12.7 g/dL (13.0-17.5); LYMPH # 0.9 x10^3/uL (1.0-4.8); LYMPH % 13 % (24-48); MEAN CORPUSCULAR HEMOGLOBIN 31 pg (25-35); MEAN CORPUSCULAR HGB CONC 35 g/dL (31-37); MEAN CORPUSCULAR VOLUME 88 fL (79-100); MONO # 0.7 x10^3/uL (0.0-1.1); MONO % 10 % (0-9); NEUT # 5.6 x10^3/uL (1.8-7.7); NEUT % 77 % (31-73); PLATELET COUNT 187 x10^3/uL (140-400); RED CELL DISTRIBUTION WIDTH 12.4 % (11.5-14.5); WHITE BLOOD COUNT 7.3 x10^3/uL (4.0-11.0)
[2020-12-19 08:13] LABS: ALBUMIN 3.8 g/dL (3.4-5.0); CALCIUM 8.8 mg/dL (8.5-10.1); CREATININE 0.8 mg/dL (0.7-1.3); DIRECT BILIRUBIN 0.2 mg/dL (0.0-0.2); GFR 123.2; POTASSIUM 4.4 mmol/L (3.5-5.1); TOTAL BILIRUBIN 0.4 mg/dL (0.2-1.0); TOTAL PROTEIN 7.6 g/dL (6.4-8.2)
--- NOTE | 2020-12-19 10:13 | PDOC ---
Date of Service: DATE: 12/19/20 TIME: 10:09 Subjective: Subjective: Feels better today. Tolerating clears, had a bowel movement last night. Can feel a little anxious at times. Would really like to go home today. Objective: Vital Signs: Vital Signs Date Time Temp Pulse Resp B/P (MAP) Pulse Ox O2 Delivery O2 Flow Rate FiO2 12/19/20 07:00 98.9 81 18 130/40 (70) 96 98.9 12/18/20 20:00 Room Air Labs: Laboratory Tests Test 12/19/20 07:00 White Blood Count 7.3 x10^3/uL Red Blood Count 4.10 x10^6/uL Hemoglobin 12.7 g/dL Hematocrit 36.0 % Mean Corpuscular Volume 88 fL Mean Corpuscular Hemoglobin 31 pg Mean Corpuscular Hemoglobin Concent 35 g/dL Red Cell Distribution Width 12.4 % Platelet Count 187 x10^3/uL Neutrophils (%) (Auto) 77 % Lymphocytes (%) (Auto) 13 % Monocytes (%) (Auto) 10 % Eosinophils (%) (Auto) 1 % Basophils (%) (Auto) 0 % Neutrophils # (Auto) 5.6 x10^3/uL Lymphocytes # (Auto) 0.9 x10^3/uL Monocytes # (Auto) 0.7 x10^3/uL Eosinophils # (Auto) 0.0 x10^3/uL Basophils # (Auto) 0.0 x10^3/uL Sodium Level 134 mmol/L Potassium Level 4.4 mmol/L Chloride Level 98 mmol/L Carbon Dioxide Level 29 mmol/L Anion Gap 7 Blood Urea Nitrogen 19 mg/dL Creatinine 0.8 mg/dL Estimated GFR (Cockcroft-Gault) 123.2 Glucose Level 92 mg/dL Calcium Level 8.8 mg/dL Total Bilirubin 0.4 mg/dL Direct Bilirubin 0.2 mg/dL Aspartate Amino Transf (AST/SGOT) 26 U/L Alanine Aminotransferase (ALT/SGPT) 96 U/L Alkaline Phosphatase 80 U/L Total Protein 7.6 g/dL Albumin 3.8 g/dL Amylase Level 182 U/L Lipase 694 U/L BLOOD CULTURE Preliminary NO GROWTH AFTER 4 DAYS PE: GEN: NAD LUNGS: CTAB HEART: RRR ABD: soft, much less tender, BS+ NEURO/PSYCH: A & O 3 A/P: Bile leak s/p ERCP/stent Post-ERCP pancreatitis - improving COVID-19 -- ADAT - he'd like jello, yogurt, and maybe mashed potatoes later. DC per primary. We'll contact to schedule stent removal. Might be a good idea to continue PPI for h/o GERD, at least in short term. All d/w nurse Roxanne. Justicifation of Admission Dx: Justifications for Admission: Justification of Admission Dx: Yes JOSE ELIAS JAMA Dec 19, 2020 10:13
[2020-12-19] MEDS: AA 4.25 %/CALCIUM/LYTES/D5W 1,000 ML IV SCH (10:30)
--- NOTE | 2020-12-19 10:43 | NUR ---
SW following. Discussed with RN, pt from home. Diet advanced as tolerated. RN advised no SW needs, anticipates discharge home today with self care. COVID-19 positive. SW will continue to follow.
--- NOTE | 2020-12-19 10:43 | PDOC ---
[employer] PROGRESS NOTE Date of Service DOS: DATE: 12/19/20 TIME: 10:41 Chief Complaint Chief Complaint Bile leak s/p ERCP/stent Post-ERCP pancreatitis COVID-19 - not hypoxic, no symptoms Hypokalemia. Hyponatremia History of Present Illness History of Present Illness Mr Ware is a 20-year-old healthy male who had a laparoscopic cholecystectomy on Wednesday of this week. He has been doing well at first, but then he has developed abdominal pain and nausea, vomiting. He has not had a bowel movement for several days. His mom brought him to the hospital. We did some imaging of his abdomen, which is showing postoperative changes of a laparoscopic ch olecystectomy, but there is also some fluid collection in the right paracolic gutter and pelvis. We were concerned this could be a hemoperitoneum or a mixture of hemoperitoneum and bile leak Admit the patient and consult GI and general surgery. 12/16/2020: Afebrile, no acute events overnight. To ERCP with stenting 12/17: COVID-19 returned positive. His lipase over 12,000 today having some nausea with a lot of pain overnight did not tolerate oxycodone well certainly n.p.o. family prefers morphine 12/18: Labs improving lipase level is trending down. Afebrile no O2 requirements. Tolerating sips well. Sodium improved potassium improved. Discussed with him and his mother. Labs continue to improve tolerating clears had a bowel movement yesterday evening. He is a bit anxious to go home. Pain is well controlled. Vitals/I&O Vitals/I&O: Vital Signs Date Time Temp Pulse Resp B/P (MAP) Pulse Ox O2 Delivery O2 Flow Rate FiO2 12/19/20 07:00 98.9 81 18 130/40 (70) 96 98.9 12/18/20 20:00 Room Air I & O 12/18/20 12/18/20 12/19/20 15:00 23:00 07:00 Intake Total 1000 ml 150 ml Balance 1000 ml 150 ml Physical Exam General: Alert, Oriented X3, Cooperative Heart: Regular rate, Normal S1, Normal S2 Lungs: Clear Abdomen: Soft, Other (lap sites intact ) Extremities: No clubbing, No cyanosis Skin: No rashes, No breakdown Labs Labs: Laboratory Tests Test 8/19/21 07:00 White Blood Count 7.3 x10^3/uL (4.0-11.0) Red Blood Count 4.10 x10^6/uL (4.30-5.70) Hemoglobin 12.7 g/dL (13.0-17.5) Hematocrit 36.0 % (39.0-53.0) Mean Corpuscular Volume 88 fL (79-100) Mean Corpuscular Hemoglobin 31 pg (25-35) Mean Corpuscular Hemoglobin Concent 35 g/dL (31-37) Red Cell Distribution Width 12.4 % (11.5-14.5) Platelet Count 187 x10^3/uL (140-400) Neutrophils (%) (Auto) 77 % (31-73) Lymphocytes (%) (Auto) 13 % (24-48) Monocytes (%) (Auto) 10 % (0-9) Eosinophils (%) (Auto) 1 % (0-3) Basophils (%) (Auto) 0 % (0-3) Neutrophils # (Auto) 5.6 x10^3/uL (1.8-7.7) Lymphocytes # (Auto) 0.9 x10^3/uL (1.0-4.8) Monocytes # (Auto) 0.7 x10^3/uL (0.0-1.1) Eosinophils # (Auto) 0.0 x10^3/uL (0.0-0.7) Basophils # (Auto) 0.0 x10^3/uL (0.0-0.2) Sodium Level 134 mmol/L (136-145) Potassium Level 4.4 mmol/L (3.5-5.1) Chloride Level 98 mmol/L (98-107) Carbon Dioxide Level 29 mmol/L (21-32) Anion Gap 7 (6-14) Blood Urea Nitrogen 19 mg/dL (8-26) Creatinine 0.8 mg/dL (0.7-1.3) Estimated GFR (Cockcroft-Gault) 123.2 Glucose Level 92 mg/dL (70-99) Calcium Level 8.8 mg/dL (8.5-10.1) Total Bilirubin 0.4 mg/dL (0.2-1.0) Direct Bilirubin 0.2 mg/dL (0.0-0.2) Aspartate Amino Transf (AST/SGOT) 26 U/L (15-37) Alanine Aminotransferase (ALT/SGPT) 96 U/L (16-63) Alkaline Phosphatase 80 U/L (46-116) Total Protein 7.6 g/dL (6.4-8.2) Albumin 3.8 g/dL (3.4-5.0) Amylase Level 182 U/L (25-115) Lipase 694 U/L (73-393) Assessment and Plan Assessmemt and Plan Problems Medical Problems: (1) Abdominal pain Status: Acute Comment Review of Relevant I have reviewed the following items rosalia (where applicable) has been applied. Medications: Current Medications Medications (Trade) Dose Ordered Sig/[place] Route PRN Reason Start Time Stop Time Status Last Admin Dose Admin Lorazepam (Ativan) 2 mg PRN Q6HRS PRN PO ANXIETY / AGITATION 12/18/20 18:45 12/18/20 20:28 Zolpidem Tartrate (Ambien) 5 mg PRN QHS PRN PO INSOMNIA 12/18/20 18:45 12/18/20 23:48 Justifications for Admission Other Justification STEVAN BABIN MD Dec 19, 2020 10:43
[2020-12-19 11:00] VITALS: BP 137/48
--- NOTE | 2020-12-19 12:13 | PDOC3 ---
Discharge Summary Visit Information Date of Admission: Dec 15, 2020 Date of Discharge: Dec 19, 2020 Admitting Diagnosis: Acute abdominal pain Final Diagnosis Problems Medical Problems: (1) Abdominal pain Status: Acute Brief Hospital Course Allergies Allergies Coded Allergies Type Severity Reaction Last Updated Verified No Known Drug Allergies 12/13/20 No Vital Signs Vital Signs Date Time Temp Pulse Resp B/P (MAP) Pulse Ox O2 Delivery O2 Flow Rate FiO2 12/19/20 07:00 98.9 81 18 130/40 (70) 96 98.9 12/18/20 20:00 Room Air Lab Results Laboratory Tests Test 12/18/20 05:05 12/19/20 07:00 White Blood Count 8.8 x10^3/uL (4.0-11.0) 7.3 x10^3/uL (4.0-11.0) Red Blood Count 4.00 x10^6/uL (4.30-5.70) 4.10 x10^6/uL (4.30-5.70) Hemoglobin 12.5 g/dL (13.0-17.5) 12.7 g/dL (13.0-17.5) Hematocrit 35.1 % (39.0-53.0) 36.0 % (39.0-53.0) Mean Corpuscular Volume 88 fL (79-100) 88 fL (79-100) Mean Corpuscular Hemoglobin 31 pg (25-35) 31 pg (25-35) Mean Corpuscular Hemoglobin Concent 36 g/dL (31-37) 35 g/dL (31-37) Red Cell Distribution Width 12.3 % (11.5-14.5) 12.4 % (11.5-14.5) Platelet Count 177 x10^3/uL (140-400) 187 x10^3/uL (140-400) Neutrophils (%) (Auto) 80 % (31-73) 77 % (31-73) Lymphocytes (%) (Auto) 11 % (24-48) 13 % (24-48) Monocytes (%) (Auto) 8 % (0-9) 10 % (0-9) Eosinophils (%) (Auto) 0 % (0-3) 1 % (0-3) Basophils (%) (Auto) 0 % (0-3) 0 % (0-3) Neutrophils # (Auto) 7.0 x10^3/uL (1.8-7.7) 5.6 x10^3/uL (1.8-7.7) Lymphocytes # (Auto) 1.0 x10^3/uL (1.0-4.8) 0.9 x10^3/uL (1.0-4.8) Monocytes # (Auto) 0.7 x10^3/uL (0.0-1.1) 0.7 x10^3/uL (0.0-1.1) Eosinophils # (Auto) 0.0 x10^3/uL (0.0-0.7) 0.0 x10^3/uL (0.0-0.7) Basophils # (Auto) 0.0 x10^3/uL (0.0-0.2) 0.0 x10^3/uL (0.0-0.2) Sodium Level 140 mmol/L (136-145) 134 mmol/L (136-145) Potassium Level 4.2 mmol/L (3.5-5.1) 4.4 mmol/L (3.5-5.1) Chloride Level 102 mmol/L (98-107) 98 mmol/L (98-107) Carbon Dioxide Level 26 mmol/L (21-32) 29 mmol/L (21-32) Anion Gap 12 (6-14) 7 (6-14) Blood Urea Nitrogen 18 mg/dL (8-26) 19 mg/dL (8-26) Creatinine 0.7 mg/dL (0.7-1.3) 0.8 mg/dL (0.7-1.3) Estimated GFR (Cockcroft-Gault) 143.8 123.2 Glucose Level 108 mg/dL (70-99) 92 mg/dL (70-99) Calcium Level 8.8 mg/dL (8.5-10.1) 8.8 mg/dL (8.5-10.1) Total Bilirubin 0.3 mg/dL (0.2-1.0) 0.4 mg/dL (0.2-1.0) Direct Bilirubin 0.1 mg/dL (0.0-0.2) 0.2 mg/dL (0.0-0.2) Aspartate Amino Transf (AST/SGOT) 47 U/L (15-37) 26 U/L (15-37) Alanine Aminotransferase (ALT/SGPT) 137 U/L (16-63) 96 U/L (16-63) Alkaline Phosphatase 87 U/L (46-116) 80 U/L (46-116) Total Protein 7.1 g/dL (6.4-8.2) 7.6 g/dL (6.4-8.2) Albumin 3.8 g/dL (3.4-5.0) 3.8 g/dL (3.4-5.0) Amylase Level 730 U/L (25-115) 182 U/L (25-115) Lipase 3857 U/L (73-393) 694 U/L (73-393) Laboratory Tests Test 12/19/20 07:00 White Blood Count 7.3 x10^3/uL (4.0-11.0) Red Blood Count 4.10 x10^6/uL (4.30-5.70) Hemoglobin 12.7 g/dL (13.0-17.5) Hematocrit 36.0 % (39.0-53.0) Mean Corpuscular Volume 88 fL (79-100) Mean Corpuscular Hemoglobin 31 pg (25-35) Mean Corpuscular Hemoglobin Concent 35 g/dL (31-37) Red Cell Distribution Width 12.4 % (11.5-14.5) Platelet Count 187 x10^3/uL (140-400) Neutrophils (%) (Auto) 77 % (31-73) Lymphocytes (%) (Auto) 13 % (24-48) Monocytes (%) (Auto) 10 % (0-9) Eosinophils (%) (Auto) 1 % (0-3) Basophils (%) (Auto) 0 % (0-3) Neutrophils # (Auto) 5.6 x10^3/uL (1.8-7.7) Lymphocytes # (Auto) 0.9 x10^3/uL (1.0-4.8) Monocytes # (Auto) 0.7 x10^3/uL (0.0-1.1) Eosinophils # (Auto) 0.0 x10^3/uL (0.0-0.7) Basophils # (Auto) 0.0 x10^3/uL (0.0-0.2) Sodium Level 134 mmol/L (136-145) Potassium Level 4.4 mmol/L (3.5-5.1) Chloride Level 98 mmol/L (98-107) Carbon Dioxide Level 29 mmol/L (21-32) Anion Gap 7 (6-14) Blood Urea Nitrogen 19 mg/dL (8-26) Creatinine 0.8 mg/dL (0.7-1.3) Estimated GFR (Cockcroft-Gault) 123.2 Glucose Level 92 mg/dL (70-99) Calcium Level 8.8 mg/dL (8.5-10.1) Total Bilirubin 0.4 mg/dL (0.2-1.0) Direct Bilirubin 0.2 mg/dL (0.0-0.2) Aspartate Amino Transf (AST/SGOT) 26 U/L (15-37) Alanine Aminotransferase (ALT/SGPT) 96 U/L (16-63) Alkaline Phosphatase 80 U/L (46-116) Total Protein 7.6 g/dL (6.4-8.2) Albumin 3.8 g/dL (3.4-5.0) Amylase Level 182 U/L (25-115) Lipase 694 U/L (73-393) Brief Hospital Course Mr Ware is a 20-year-old healthy male who had a laparoscopic cholecystectomy on Wednesday of this week. He has been doing well at first, but then he has developed abdominal pain and nausea, vomiting. He has not had a bowel movement for several days. His mom brought him to the hospital. We did some imaging of his abdomen, which is showing postoperative changes of a laparoscopic cholecystectomy, but there is also some fluid collection in the right paracolic gutter and pelvis. We were concerned this could be a hemoperitoneum or a mixture of hemoperitoneum and bile leak Admit the patient and consult GI and general surgery. 12/16/2020: Afebrile, no acute events overnight. To ERCP with stenting 12/17: COVID-19 returned positive. His lipase over 12,000 today having some nausea with a lot of pain overnight did not tolerate oxycodone well certainly n.p.o. family prefers morphine 12/18: Labs improving lipase level is trending down. Afebrile no O2 requirements. Tolerating sips well. Sodium improved potassium improved. Discussed with him and his mother. Labs continue to improve tolerating clears had a bowel movement yesterday evening. He is a bit anxious to go home. Pain is well controlled. Counseled on monitoring O2 at home, no COVID 19 symptoms thus far. Follow-up with GI in 1 week and general surgery in 2 weeks. Consults: GI, general surgery Problem list: Bile leak s/p ERCP/stent Post-ERCP pancreatitis COVID-19 - not hypoxic, no symptoms Hypokalemia. Hyponatremia Greater than 30 minutes spent on d/c home with self care. Discharge Information Condition at Discharge: Improved Follow Up: Weeks (1) Disposition/Orders: D/C to Home Scheduled Esomeprazole Magnesium (Nexium Capsule) 40 Mg Capsule.dr, 40 MG PO DAILYAC for reflux for 30 Days, #30 Ref 0 Prescribed by: Craig Mcduffie on 12/13/20 0835 Info (No Known Medications Prior To Admisstion) Each, 1 EACH MC DAILY for none, (Reported) Entered as Reported by: MORELIA YANEZ on 12/13/20 0632 Scheduled PRN Oxycodone HCl/Acetaminophen (Percocet 5-325 mg Tablet) 1 Each Tablet, 1 TAB PO Q6HRS PRN for PAIN MDD 4 Tablet(s) for 5 Days, #20 Ref 0 Prescribed by: Craig Mcduffie on 12/13/20 0836 Justicifation of Admission Dx: Justifications for Admission: Justification of Admission Dx: Yes STEVAN BABIN MD Dec 19, 2020 12:13
--- NOTE | 2020-12-19 14:39 | NUR ---
Patient escorted out to main entrance with education on quarantine and discharge instructions. IV discontinued. Home with self care RA, tolerated well.
[2020-12-20] MEDS ORDERED: PANTOPRAZOLE 40 MG TABLET.DR. PO SCH (07:30)
== END 2020-12-19 14:37 | disposition home or self-care (01) | DRG 444 ==
LOC: ER 03:57 → ED HOLD 08:24 → 4 NORTH 13:10 → 5 NORTH 12-16 19:00
PROVIDERS: ADMIT Internal Medicine; ATTEND Internal Medicine
PROC: 0F798DZ Dilation of Common Bile Duct with Intraluminal Device, Via Natural or Artificial Opening Endoscopic (ICD-10-PCS; principal; 2020-12-16 17:00)
DX: K83.2 Perforation of bile duct (principal); K66.1 Hemoperitoneum; K85.90 Acute pancreatitis without necrosis or infection, unspecified; U07.1 COVID-19; N10 Acute pyelonephritis; E87.1 Hypo-osmolality and hyponatremia; E87.6 Hypokalemia; F12.90 Cannabis use, unspecified, uncomplicated; F17.210 Nicotine dependence, cigarettes, uncomplicated; F41.9 Anxiety disorder, unspecified; K21.9 Gastro-esophageal reflux disease without esophagitis; K59.00 Constipation, unspecified; R13.10 Dysphagia, unspecified; Y84.8 Other medical procedures as the cause of abnormal reaction of the patient, or of later complication, without mention of misadventure at the time of the procedure; Z83.3 Family history of diabetes mellitus; Z87.11 Personal history of peptic ulcer disease; Z90.49 Acquired absence of other specified parts of digestive tract
CPT/HCPCS: 36415; 43260; 43274; 74177; 74328; 78226; 80048; 80053; 80076; 82150; 82248; 83605; 83690; 85007; 85025; 87040; 87426; 96374; 96375; A9537; C1769; C2617; C9113; J0696; J2250; J2270; J2370; J2405; J2704; J2710; J3010; J3490; J7120; Q9967; U0003; U0005; 99285-25; G0378